=== PATIENT | male | born 1980 | race Two or more races ===

== ENCOUNTER 2021-07-22 20:40 | Emergency (ER) | payer OTHER, SELFPAY ==
[2021-07-22 21:14] VITALS: BP 152/100; PULSE 98; RESP 18; TEMP 37.1; O2SAT 96; BMI 33.0
--- NOTE | 2021-07-22 21:25 | ED.EXTPRO ---
HPI - Extremity Problem General Chief complaint: Extremity Injury, Lower Stated complaint: left foot swollen Time Seen by Provider: 07/22/21 21:34 Source: patient Mode of arrival: ambulatory Limitations: no limitations History of Present Illness HPI Narrative: Patient complaining of pain in the left foot for last 2- 3 days no injury has similar pain few months ago no treatment was done no history of gout history of kidney stone does not take any medication Related Data Previous Rx's Medication Instructions Recorded colchicine 0.6 mg capsule 0.6 mg PO DAILY #30 cap 07/22/21 dexamethasone 6 mg tablet 6 mg PO DAILY #7 tab 07/22/21 (Decadron) indomethacin 50 mg capsule 50 mg PO TID PRN #60 cap 07/22/21 Allergies Allergy/AdvReac Type Severity Reaction Status Date / Time No Known Allergies Allergy Unverified 05/06/20 18:42 Review of Systems Review of Systems: Yes all other systems are reviewed and are negative PMFSH Social History Social History Advance Directives: No Advance Directives Information Provided: Yes Physical Exam Vital Signs: Vital Signs: Last Vital Signs Temp 98.8 F 07/22/21 21:14 Pulse 98 07/22/21 21:14 Resp 18 07/22/21 21:14 BP 152/100 H 07/22/21 21:14 Pulse Ox 96 07/22/21 21:14 BMI result Body Mass Index 33.0 Appearance: Alert. Oriented X3. No acute distress. CVS: Normal heart rate and rhythm. Pulses normal. Respiratory: No respiratory distress. Equal air entry bilateral, Abdomen: Soft and nontender. , no CVA tenderness Skin: Skin warm and dry. Normal skin color. Normal skin turgor. Extremities: No lower extremity edema. No calf tenderness, tenderness at left ankle and left 1st metacarpophalangeal joint with slight swelling Neuro: Oriented X 3. Extrem: Ankle/foot/toe images: 1. Soft tissue swelling and tenderness, skin normal MDM - Extremity (Nontraumatic) MDM Narrative Medical decision making narrative: Patient with pain in the left greater toe clinically gout responded to Decadron and colchicine had similar pain in the past. Will discharge patient home on colchicine Decadron and Indocin Discharge Plan Discharge Clinical Impression: Gout Qualifiers: Gout site: foot Encounter type: initial encounter Chronicity: acute Laterality: left Patient Disposition: Home, Self-Care Instructions: Gout (ED) Additional Instructions: Rest at home take medication as prescribed Follow-up with PCP if not better Prescriptions: New dexamethasone [Decadron] 6 mg tablet 6 mg PO DAILY Qty: 7 RF: 0 colchicine 0.6 mg capsule 0.6 mg PO DAILY Qty: 30 RF: 0 indomethacin 50 mg capsule 50 mg PO TID PRN (Reason: pain (scale score 4-6)) Qty: 60 RF: 0 Interventions: ED Discharge Assessment Last Done: 07/22/21 23:30 Print Language: Georgian
--- NOTE | 2021-07-22 21:54 | PC.NURSE ---
Pharmacy contacted regarding order for Colchicine as it is not stocked in pyxis.
[2021-07-22] MEDS: dexAMETHasone 2 MG TABLET 10 MG PO (21:57)
[2021-07-22] MEDS: Colchicine 0.6 MG TABLET 1.2 MG PO (22:03)
--- NOTE | 2021-07-22 22:05 | PC.NURSE ---
Pt medicated per MAR.
== END 2021-07-22 23:34 | disposition home or self-care (01) ==
PROVIDERS: Emergency Provider Internal Medicine; PCP Internal Medicine
DX: M10.9 Gout, unspecified (principal)
CPT/HCPCS: 99283; J8540

== ENCOUNTER 2022-03-04 14:33 | Emergency (ER) | payer OTHER, SELFPAY ==
[2022-03-04 15:27] VITALS: BP 148/93; PULSE 104; RESP 16; TEMP 36.9; O2SAT 100; BMI 33.1
[2022-03-04 15:56] LABS: Strep A Nucleic Acid Negative (Negative)
[2022-03-04 18:02] LABS: COVID-19 Test Positive (Negative)
[2022-03-04 18:11] LABS: Monotest Negative (Negative)
--- NOTE | 2022-03-04 21:23 | ED.GENADULT ---
HPI - General Adult General Chief complaint: General Medical Stated complaint: sore throat Time Seen by Provider: 03/04/22 16:54 Source: patient Mode of arrival: ambulatory Limitations: no limitations History of Present Illness HPI narrative: Patient comes to the emergency room complaining of sore throat for 3 days, fever, body aches. Patient has been taking Tylenol for symptoms. Patient is not immunized for COVID-19. Patient denies chest pain or shortness of breath Related Data Previous Rx's Medication Instructions Recorded colchicine 0.6 mg capsule 0.6 mg PO DAILY #30 caps 07/22/21 dexamethasone 6 mg tablet 6 mg PO DAILY #7 tabs 07/22/21 (Decadron) indomethacin 50 mg capsule 50 mg PO TID PRN pain (scale score 07/22/21 4-6) #60 caps colchicine 0.6 mg tablet 0.6 mg PO DAILY 30 days #30 tabs 07/23/21 nirmatrelvir 300 mg (150 mg x See Rx Instructions PO .COMPLEX 03/04/22 2)-ritonavir 100 mg tablet (EUA) #30 tabs (Paxlovid 300 mg () Allergies Allergy/AdvReac Type Severity Reaction Status Date / Time No Known Allergies Allergy Unverified 03/04/22 15:27 Review of Systems Review of Systems: Constitutional : No Weight loss, complaining of fever and chills, No Night Sweats, complaining of fatigue and generalized malaise ENT/Mouth : No Hearing loss, No Ear Pain, No Nasal Congestion, No Sinus Pain, No Hoarseness, complaining of mild sore throat, No Rhinorrhea, No Swallowing Difficulty Eyes: No Eye Pain, No Swelling, No Redness, No Foreign Body, No Discharge, No Vision Changes Cardiovascular : No Chest Pain, No SOB, No Dyspnea on Exertion, No Orthopnea, No Edema, No Palpitations Respiratory : No Cough, No Sputum, No Wheezing, No Smoke Exposure, No Dyspnea Gastrointestinal : No Nausea, No Vomiting, No Diarrhea, No Constipation, No abdominal Pain, No Hematochezia, No Melena Genitourinary : no irregular bleeding, No Dysuria, No Urinary Frequency, No Hematuria, No Urinary Incontinence, No Urgency, No Flank Pain, No Urinary Flow Changes, No Hesitancy Musculoskeletal : No joint pain, No Myalgias, No Joint Swelling Skin : No Skin Lesions, No rash Neuro : No Weakness, No Numbness, No Paresthesias, No Loss of Consciousness, No Dizziness, No Headache Psych : No Anxiety/Panic, No Depression, No SI/HI/AH/VH, No Social Issues, Heme/Lymph: No Bruising, No Bleeding,No Lymphadenopathy Endocrine : No Polyuria, No Polydipsia, No Temperature Intolerance [facility] Social History Social History Advance Directives: No Advance Directives Information Provided: No Physical Exam ED Vital Signs: Vital Signs - 24 hr 03/04/22 15:27 Temperature 98.4 F Pulse Rate 104 H Respiratory Rate 16 Blood Pressure 148/93 H Pulse Oximetry 100 Oxygen Delivery Method Room Air BMI result Body Mass Index 33.1 Const Other: Appearance: Alert. Oriented X3. No acute distress. Well-appearing Eyes: Pupils equal, round and reactive to light. ENT: Pharynx normal. Bilateral exudates on tonsils, no abscesses are oropharynx patent Neck: Normal inspection. Neck supple. No lymph nodes noted. No crepitus CVS: Normal heart rate and rhythm. Pulses normal. Normal S1 and S2 Respiratory: No respiratory distress. Breath sounds normal. No Wheezing. No rales Abdomen: Soft and nontender. No rigidity. No distention. Skin: Skin warm and dry. Normal skin color. Normal skin turgor. Extremities: No lower extremity edema. No Lacerations. No Rash Neuro: Oriented X 3. No motor deficit. No sensory deficit. Moving all extremities. No slurred speech. CN 2 through 12 grossly intact Psych: calm, cooperative, normal affect Course Course Course Narrative: Patient tested negative for mono and strep. Patient tested positive for COVID-19. Patient is not immunized. Patient is within the window of treatment for Paxlovid Medical Decision Making Lab Data Labs: Lab Results 03/04/22 03/04/22 03/04/22 Range/Units 15:30 17:49 17:49 COVID-19 (CARI) Positive A (Negative) COVID-19 Clin Com See Note Monoscreen Negative (Negative) S. pyogenes GrpA TAQUERIA Negative (Negative) Discharge Plan Discharge Clinical Impression: COVID-19 Patient Disposition: Home, Self-Care Instructions: COVID-19 (Coronavirus Disease 2019) (ED) Additional Instructions: Please follow-up with your primary care physician tomorrow. If you have any worsening or new symptoms, please return to the emergency room or call 911 Prescriptions: New Paxlovid (EUA) 150 mg x 2- 100 mg tablet See Rx Instructions .ROUTE .COMPLEX Qty: 30 0RF Rx Instructions: take TWO 150 mg tablets of nirmatrelvir with ONE 100 mg tablet of ritonavir twice daily for 5 days No Action dexamethasone [Decadron] 6 mg tablet 6 mg PO DAILY Qty: 7 0RF colchicine 0.6 mg capsule 0.6 mg PO DAILY Qty: 30 0RF indomethacin 50 mg capsule 50 mg PO TID PRN (Reason: pain (scale score 4-6)) Qty: 60 0RF Rx Instructions: administer with food or milk colchicine 0.6 mg tablet 0.6 mg PO DAILY 30 Days Qty: 30 0RF
== END 2022-03-04 22:25 | disposition home or self-care (01) ==
PROVIDERS: Emergency Medicine; Emergency Provider Emergency Medicine; PCP Internal Medicine
DX: U07.1 COVID-19 (principal); J02.9 Acute pharyngitis, unspecified; Z79.899 Other long term (current) drug therapy
CPT/HCPCS: 36415; 86308; 87635; 87651; 99282; 99283

== ENCOUNTER 2022-09-17 22:42 | Emergency (ER) | payer OTHER, SELFPAY ==
--- NOTE | ~2022-09-17 | XR_ITS ---
EXAMINATION: XR FOOT, LEFT CLINICAL INFORMATION: Swelling and pain COMPARISON: None TECHNIQUE: AP, lateral, and oblique views of the left foot. FINDINGS: Osseous alignment is anatomic. No acute fracture is seen. No significant focal soft tissue abnormality identified. XR/XR foot LT min 3V IMPRESSION: No acute findings identified.
[2022-09-17 22:47] VITALS: BP 149/92; PULSE 111; RESP 20; TEMP 36.4; O2SAT 95; BMI 33.0
--- OUTSIDE RECORDS SUMMARY | 2022-09-17 23:28 | XMS_ITS | Continuity of Care Document ---
:1980 Author Organization [address], [address] [place] [address]- Care Team Providers Name Role Phone Davon REYES MD, Beau Cordero Primary Care Physician Encounter [facility] [place] Date(s): 10/26/20 - 11/02/[address], [address] [place], [place] [address] Attending Physician: Not on Staff, Attending Referring Physician: Beau Mays III, MD Allergies, Adverse Reactions, Alerts Substance Reaction Severity Status NKA Active Immunizations Given and Recorded Vaccine Date Status Refusal Reason FluLaval (oldterm)1 07/05/11 Given tetanus-diphtheria toxoids (Td)2 07/05/11 Given 1Admin Note: vis [id number] Note: VIS GIVEN 07/07/2008 Medications HYDROmorphone 2 mg oral tablet 1 tablet = 2 mg, By Mouth, Every 4 hours, PRN for pain, 0 Refills, Maintenance, 04/30/15 14:47:22, Tablet Start Date: 04/30/15 Status: OrderedLidoderm 5% film 1 patch, Topically, Daily, remove patches after 12 hours, # 10 patch, 0 Refills, Maintenance, 08/04/20 2:59:[address] [id number], Partial fill upon patient request if the prescription is for aschedule II opioid drug., 1 patch Topically Daily... Start Date: 08/04/20 Stop Date: 08/14/20 Status: Ordered Vital Signs Most recent to oldest [Reference Range]: 1 Height 179 cm (10/25/20 8:25 AM) Weight 97.9 kg (10/25/20 8:25 AM) Body Mass Index [18.5-24.99] 30.55 *>HHI* (10/25/20 8:25 AM) Social History Social History Type Response Smoking Status Never smoker entered on: 02/16/16 Sex
--- OUTSIDE RECORDS SUMMARY | 2022-09-17 23:28 | XMS_ITS | Continuity of Care Document ---
:1980 Author Organization [address], [address] [place] [address]- Care Team Providers Name Role Phone Davon REYES MD, Beau Cordero Primary Care Physician Encounter [facility] Date(s): 10/26/20 - 11/25/[address], [address] [place], [place] [address] Attending Physician: Jarrell Horton Admitting Physician: AdmJarrell hassan Referring Physician: AdmtrJarrell Allergies, Adverse Reactions, Alerts Substance Reaction Severity Status NKA Active Immunizations Given and Recorded Vaccine Date Status Refusal Reason FluLaval (oldterm)1 07/05/11 Given tetanus-diphtheria toxoids (Td)2 07/05/11 Given 1Admin Note: vis [id number] Note: VIS GIVEN 07/07/2008 Medications HYDROmorphone 2 mg oral tablet 1 tablet = 2 mg, By Mouth, Every 4 hours, PRN for pain, 0 Refills, Maintenance, 04/30/15 14:47:22, Tablet Start Date: 04/30/15 Status: OrderedLidoderm 5% film 1 patch, Topically, Daily, remove patches after 12 hours, # 10 patch, 0 Refills, Maintenance, 08/04/20 2:59:[address] [id number], Partial fill upon patient request if the prescription is for aschedule II opioid drug., 1 patch Topically Daily... Start Date: 08/04/20 Stop Date: 08/14/20 Status: Ordered Social History Social History Type Response Smoking Status Never smoker entered on: 02/16/16 Sex
--- OUTSIDE RECORDS SUMMARY | 2022-09-17 23:28 | XMS_ITS | Continuity of Care Document ---
:1980 Author Organization [address], [address] [place] [address]- Care Team Providers Name Role Phone Davon REYES MD, Beau Cordero Primary Care Physician [place] [facility] [place] [facility] [place] - 10/30/[address], [address] [place], [place] [address] Allergies, Adverse Reactions, Alerts Substance Reaction Severity Status NKA Active Immunizations Given and Recorded Vaccine Date Status Refusal Reason FluLaval (oldterm)1 07/05/11 Given tetanus-diphtheria toxoids (Td)2 07/05/11 Given 1Admin Note: vis [id number] Note: VIS GIVEN 07/07/2008 Medications HYDROmorphone 2 mg oral tablet 1 tablet = 2 mg, By Mouth, Every 4 hours, PRN for pain, 0 Refills, Maintenance, 04/30/15 14:47:22, Tablet Start Date: 04/30/15 Status: OrderedLidoderm 5% film 1 patch, Topically, Daily, remove patches after 12 hours, # 10 patch, 0 Refills, Maintenance, 08/04/20 2:59:00 [id number], Partial fill upon patient request if the prescription is for aschedule II opioid drug., 1 patch Topically Daily... Start Date: 08/04/20 Stop Date: 08/14/20 Status: Ordered Social History Social History Type Response Smoking Status Never smoker entered on: 02/16/16 Sex
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
--- OUTSIDE RECORDS SUMMARY | 2022-09-17 23:28 | XMS_ITS | Continuity of Care Document ---
:1980 Author Organization [address], [address] [place] [address]- Care Team Providers Name Role Phone Davon REYES MD, Beau Cordero Primary Care Physician Encounter [facility] [place] Date(s): 08/27/20 - 11/04/[address], [address] [place], [place] [address] Attending Physician: Bo De Guzman MD Referring Physician: Beau Mays III, MD Allergies, Adverse Reactions, Alerts Substance Reaction Severity Status NKA Active Immunizations Given and Recorded Vaccine Date Status Refusal Reason FluLaval (oldterm)1 07/05/11 Given tetanus-diphtheria toxoids (Td)2 07/05/11 Given 1Admin Note: vis [id number] Note: VIS GIVEN 07/07/2008 Medications HYDROmorphone 2 mg oral tablet 1 tablet = 2 mg, By Mouth, Every 4 hours, PRN for pain, 0 Refills, Maintenance, 04/30/15 14:47:22, Tablet Start Date: 04/30/15 Status: OrderedLidoderm 5% film 1 patch, Topically, Daily, remove patches after 12 hours, # 10 patch, 0 Refills, Maintenance, 08/04/20 2:59:00 [facility] [id number], Partial fill upon patient request if the prescription is for aschedule II opioid drug., 1 patch Topically Daily... Start Date: 08/04/20 Stop Date: 08/14/20 Status: Ordered Vital Signs Most recent to oldest [Reference Range]: 1 Height 179 cm (09/14/20 8:48 AM) Social History Social History Type Response Smoking Status Never smoker entered on: 02/16/16 Sex
--- OUTSIDE RECORDS SUMMARY | 2022-09-17 23:28 | XMS_ITS | Continuity of Care Document ---
:1980 Author Organization [address], [address] [place] [address]- Care Team Providers Name Role Phone Davon REYES MD, Beau Cordero Primary Care Physician Encounter [facility] Date(s): 08/27/20 - 09/26/[address], [address] [place], [place] [address] Allergies, Adverse Reactions, Alerts Substance Reaction Severity Status NKA Active Immunizations Given and Recorded Vaccine Date Status Refusal Reason FluLaval (oldterm)1 07/05/11 Given tetanus-diphtheria toxoids (Td)2 07/05/11 Given 1Admin Note: vis [id number] Note: VIS GIVEN 07/07/2008 Medications HYDROmorphone 2 mg oral tablet 1 tablet = 2 mg, By Mouth, Every 4 hours, PRN for pain, 0 Refills, Maintenance, 04/30/15 14:47:22, Tablet Start Date: 04/30/15 Status: OrderedLidoderm 5% film 1 patch, Topically, Daily, remove patches after 12 hours, # 10 patch, 0 Refills, Maintenance, 08/04/20 2:59:00 [id number], Partial fill upon patient request if the prescription is for aschedule II opioid drug., 1 patch Topically Daily... Start Date: 08/04/20 Stop Date: 08/14/20 Status: Ordered Social History Social History Type Response Smoking Status Never smoker entered on: 02/16/16 Sex
[2022-09-17 23:42] VITALS: BP 138/94; PULSE 105; RESP 24; TEMP 36.7; O2SAT 96
--- NOTE | 2022-09-17 23:44 | ED_ITS ---
HPI - Extremity Problem General Chief complaint: Extremity Problem Stated complaint: gout in leg? Time Seen by Provider: 09/17/22 23:44 Source: patient Mode of arrival: ambulatory Limitations: language barrier History of Present Illness HPI Narrative: 41-year-old male presents with 2 days of left foot pain and swelling. States that this feels similar to his prior presentations of gout. MD Complaint: extremity pain Onset (ago): day(s) (2) Pain Consistency: constant Location: left and lower extremity Severity scale (1-10): 7 Quality: aching Radiation: none Relieving factors: elevation and rest Exacerbating factors: weight bearing, walking and palpation Associated symptoms: denies other symptoms Related Data Previous Rx's Medication Instructions Recorded colchicine 0.6 mg capsule 0.6 mg PO DAILY #30 caps 07/22/21 dexamethasone 6 mg tablet 6 mg PO DAILY #7 tabs 07/22/21 (Decadron) indomethacin 50 mg capsule 50 mg PO TID PRN pain (scale score 07/22/21 4-6) #60 caps colchicine 0.6 mg tablet 0.6 mg PO DAILY 30 days #30 tabs 07/23/21 nirmatrelvir 300 mg (150 mg See Rx Instructions PO .COMPLEX 03/04/22 x2)-ritonavir 100 mg tablet,dose #30 tabs pack(EUA) (Paxlovid) colchicine 0.6 mg tablet 0.6 mg PO DAILY #30 tabs 09/18/22 indomethacin 50 mg capsule 50 mg PO TID PRN gout pain #90 09/18/22 caps prednisone 20 mg tablet 60 mg PO DAILY 5 days #15 tabs 09/18/22 Allergies Allergy/AdvReac Type Severity Reaction Status Date / Time No Known Allergies Allergy Unverified 03/04/22 15:27 Review of Systems Review of Systems: Constitutional: No Fever, No Chills Cardiovascular: No Chest Pain, No SOB Respiratory: No Cough, No Dyspnea Musculoskeletal: positive left foot pain Skin: No Skin lacerations, No rash Neuro: No Weakness, No Numbness, No Paresthesias Yes all other systems are reviewed and are negative [facility] Past Medical History Attestation statement: The following information was validated with the patient. Source: old records reviewed Social History Social History Alcohol intake: never Smoked in Last 30 Days: No Use of substances other than those prescribed or required for medical reasons: No Advance Directives: No Physical Exam Vital Signs: Vital Signs: Last Vital Signs Temp 98.2 F 09/18/22 00:00 Pulse 102 H 09/18/22 00:00 Resp 14 09/18/22 00:00 BP 138/94 H 09/18/22 00:00 Pulse Ox 97 09/18/22 00:00 O2 Del Method 09/18/22 00:00 BMI result Body Mass Index 33.0 Appearance: Alert. Oriented X3. No acute distress. Eyes: Pupils equal, round and reactive to light. ENT: Pharynx normal. Neck: Normal inspection. Neck supple. CVS: Normal heart rate and rhythm. Pulses normal. Respiratory: No respiratory distress. Breath sounds normal. Skin: Skin warm and dry. Normal skin color. Normal skin turgor. Extremities: Left foot swelling, tenderness to palpation. Full range of motion. Brisk capillary refill in equal pulses. Neurovascularly intact. Ambulatory with a limp. Neuro: No motor deficit. No sensory deficit. Cranial nerves 2-12 intact. Course Course Course Narrative: 41-year-old male presents with left foot pain and swelling which is consistent with his prior presentations for gout. He does not have any more medications for gout does not report any injury, fevers, chills, nausea vomiting or palpitations. Patient is ambulatory however states tender to touch, is difficult for him to wear shoes because of the pain. Will order labs and x- rays. 00:56 labs negative for acute findings. X-rays negative for osteomyelitis, f racture. Low likelihood of dislocation. Patient states that Toradol and prednisone were effective to help with his pain. Plan of care is to discharge home with prescription for colchicine and indomethacin as they have worked well for him in the past. Patient verbalized understanding of and agrees plan of care discharge home. Replies understanding of signs and symptoms indicating need for emergent intervention. Patient's utilized as japanese interpreter per patient request. Google translate utilized for discharge instructions. Medications Administered Discontinued Medications Generic Name Dose Route Start Last Admin Trade Name Freq PRN Reason Stop Dose Admin Ketorolac Tromethamine 60 mg 09/17/22 23:50 09/18/22 00:02 Ketorolac Tromethamine 60 Mg/2 Ml Vial IM 09/17/22 23:51 60 mg ONCE ONE Administration Prednisone 60 mg 09/17/22 23:50 09/18/22 00:02 Prednisone 20 Mg Tablet PO 09/17/22 23:51 60 mg ONCE ONE Administration Medical Decision Making Differential Diagnosis Differential Diagnoses: The differential diagnosis associated with the presentation includes Gout, cellulitis, fracture, osteomyelitis Lab Data MDM Lab Attestation statement: I reviewed the patient's lab results. 09/18/22 00:16 09/18/22 00:16 Labs: Lab Results 09/18/22 09/18/22 Range/Units 00:16 00:16 WBC 10.4 (4.8-10.8) X10*3/uL RBC 5.04 (4.60-5.80) X10*6/uL Hgb 14.8 (14.0-18.0) g/dl Hct 43.8 (42.0-52.0) % MCV 86.9 (80.0-98.0) fL MCH 29.4 (27.0-33.0) pg MCHC 33.8 (31.0-36.0) g/dl RDW 13.2 (11.0-16.0) % Plt Count 174 (160-400) X10*3/uL MPV 12.7 H (9.4-12.4) fL Immature Gran % (Auto) 0.3 (0.0-0.4) % Neut % (Auto) 68.6 (45-73) % Lymph % (Auto) 22.0 (20-40) % Rhea % (Auto) 7.3 (2-11) % Eos % (Auto) 1.3 (0-4) % Baso % (Auto) 0.5 (0-2) % Lymph # (Auto) 2.3 (1.2-4.9) X10*3/uL Rhea # (Auto) 0.8 (0.1-1.2) X10*3/uL Eos # (Auto) 0.1 (0.0-0.4) X10*3/uL Baso # (Auto) 0.1 (0.0-0.2) X10*3/uL Abs Immat Gran (auto) 0.03 (0.00-0.03) X10*3/uL Absolute Neuts (auto) 7.1 (2.0-8.3) x10*3/uL Absolute Nucleated RBC 0.000 (0.0-0.012) X10*3/uL Nucleated RBC % (auto) 0.0 (0.0-0.2) /100WBC Sodium 138 (135-145) mmol/L Potassium 4.0 (3.3-5.1) mmol/L Chloride 104 (96-108) mmol/L Carbon Dioxide 25 (22-29) mmol/L Anion Gap 13 (12-20) BUN 15 (9-16) mg/dL Creatinine 1.17 (0.5-1.4) mg/dL Estim Creat Clear Calc 99.5 Estimated GFR > 60 Random Glucose 290 H (60-115) mg/dL Calcium 9.5 (8.4-10.2) mg/dL Independent Interpretation I performed an independent interpretation of an: Plain X-Ray Radiology Impression Discussion of test interpretation with radiology: I have reviewed the radiologist's reading. Radiologist Impression: EXAMINATION: XR FOOT, LEFT CLINICAL INFORMATION: Swelling and pain? COMPARISON: None? TECHNIQUE: AP, lateral, and oblique views of the left foot. FINDINGS: Osseous alignment is anatomic. No acute fracture is seen. No significant focal soft tissue abnormality identified.? XR/XR foot LT min 3V IMPRESSION: No acute findings identified. ? Independent Historian Clinical information obtained from an independent historian. History obtained from or confirmed by: Spouse External Record Review External record reviewed: Outpatient record and Prior outpatient labs Prescription Management I considered prescription management with: Pain Medication Chronic Conditions Patient?s care impacted by: Hypertension Discharge Plan Discharge Clinical Impression: Gout Patient Disposition: Home, Self-Care Instructions: Low Purine Diet (ED), Gout (ED), Swollen Ankle Joint (ED) Additional Instructions: Le evaluaron por dolor e hinchaz?n en el pie anuj. Wong evaluaci?n es consistente con gota. [place] colchicina 0,6 mg al d?a. [place] indometacina 50 mg cada 8 horas seg?n sea necesario para el dolor. [place] prednisona 60 mg grisel los pr?ximos 5 d?as. Seguimiento con m?dico de atenci?n primaria. Doni por elegir tiffany departamento de emergencias para wong evaluaci?n. Por favor, shauna un seguimiento con el m?dico de atenci?n primaria seg?n sea necesario. Regrese al departamento de emergencias por cualquier s?ntoma nuevo, preocupante o que empeore. You were evaluated for left foot pain and swelling. Your workup is consistent with gout. Please take colchicine 0.6 mg daily. Take indomethacin 50 mg every 8 hours as needed for pain. Take prednisone 60 mg for the next 5 days. Follow-up with primary care physician. Thank you for choosing this emergency department for evaluation. Please follow-up with primary care physician as needed. Return to the emergency department for any new, concerning, or worsening symptoms. Prescriptions: New colchicine 0.6 mg tablet 0.6 mg PO DAILY Qty: 30 3RF prednisone 20 mg tablet 60 mg PO DAILY 5 Days Qty: 15 0RF indomethacin 50 mg capsule 50 mg PO TID PRN (Reason: gout pain ) Qty: 90 0RF Rx Instructions: administer with food or milk No Action dexamethasone [Decadron] 6 mg tablet 6 mg PO DAILY Qty: 7 0RF colchicine 0.6 mg capsule 0.6 mg PO DAILY Qty: 30 0RF indomethacin 50 mg capsule 50 mg PO TID PRN (Reason: pain (scale score 4-6)) Qty: 60 0RF Rx Instructions: administer with food or milk colchicine 0.6 mg tablet 0.6 mg PO DAILY 30 Days Qty: 30 0RF Paxlovid (EUA) 150 mg x 2- 100 mg tablet See Rx Instructions .ROUTE .COMPLEX Qty: 30 0RF Rx Instructions: take TWO 150 mg tablets of nirmatrelvir with ONE 100 mg tablet of ritonavir twice daily for 5 days Referrals: Beau Mays III, MD [Primary Care Provider] - 2 weeks (Gout flare up)
[2022-09-18] VITALS: BP 138/94; PULSE 102; RESP 14; TEMP 36.8; O2SAT 97
[2022-09-18] MEDS: predniSONE 20 MG TABLET 60 MG PO (00:02)
[2022-09-18] MEDS: Ketorolac Tromethamine 60 MG/2 ML VIAL IM (00:02)
[2022-09-18 00:22] LABS: MANUAL DIFF FLAG NO
[2022-09-18 00:33] LABS: Basophils Absolute Auto 0.1 X10*3/uL (0.0-0.2); Basophils Percent Auto 0.5 % (0-2); Eosinophils Absolute Auto 0.1 X10*3/uL (0.0-0.4); Eosinophils Percent Auto 1.3 % (0-4); Hematocrit 43.8 % (42.0-52.0); Hemoglobin 14.8 g/dl (14.0-18.0); Imm Gran Abs Auto 0.03 X10*3/uL (0.00-0.03); Imm Gran Pct Auto 0.3 % (0.0-0.4); Lymphocytes Absolute Auto 2.3 X10*3/uL (1.2-4.9); Mean Corpuscular HGB Conc 33.8 g/dl (31.0-36.0); Mean Corpuscular Hemoglobin 29.4 pg (27.0-33.0); Mean Corpuscular Volume 86.9 fL (80.0-98.0); Mean Platelet Volume 12.7 fL (9.4-12.4); Monocytes Absolute Auto 0.8 X10*3/uL (0.1-1.2); Monocytes Percent Auto 7.3 % (2-11); Neutrophils Absolute Auto 7.1 x10*3/uL (2.0-8.3); Neutrophils Percent Auto 68.6 % (45-73); Platelet Count 174 X10*3/uL (160-400); Red Blood Count 5.04 X10*6/uL (4.60-5.80); Red Cell Distribution Width 13.2 % (11.0-16.0); White Blood Count 10.4 X10*3/uL (4.8-10.8)
[2022-09-18 00:38] LABS: Anion Gap 13 (12-20); Blood Urea Nitrogen 15 mg/dL (9-16); Calcium 9.5 mg/dL (8.4-10.2); Carbon Dioxide 25 mmol/L (22-29); Chloride 104 mmol/L (96-108); Creatinine Clr Calc Pharmacy 99.5; Estimated Glomerular Filt Rate > 60; Glucose Random 290 mg/dL (60-115); Sodium 138 mmol/L (135-145)
--- NOTE | 2022-09-18 01:11 | PC.NURSE ---
Reviewed discharge instructions with pt. pt verbalized understanding. Notified TIA Roe.
== END 2022-09-18 01:12 | disposition home or self-care (01) ==
PROVIDERS: Nurse Practitioner Family; Emergency Provider Emergency Medicine; PCP Internal Medicine
DX: M10.9 Gout, unspecified (principal); R60.0 Localized edema; M79.672 Pain in left foot; Z79.899 Other long term (current) drug therapy
CPT/HCPCS: 36415; 73630; 80048; 85025; 96372; 99284; J1885

== ENCOUNTER 2022-12-11 18:29 | Emergency (ER) | payer OTHER, SELFPAY ==
--- NOTE | ~2022-12-11 | XR_ITS ---
EXAMINATION: XR CHEST CLINICAL INFORMATION: Cough COMPARISON: 08/26/2015 TECHNIQUE: AP view of the chest was obtained. FINDINGS: Mild chronic elevation of the right hemidiaphragm. No consolidation, pneumothorax, or pleural effusion. Cardiac and mediastinal contours are normal. Pulmonary vasculature is normal. Bone mineralization is normal. No acute osseous findings. XR/XR chest 2V IMPRESSION: No acute pulmonary disease.
--- NOTE | ~2022-12-11 | XR_ITS ---
EXAMINATION: XR FOOT, LEFT CLINICAL INFORMATION: great toe pain, swelling COMPARISON: 09/18/2022 TECHNIQUE: AP, lateral, and oblique views of the left foot. FINDINGS: Mild soft tissue swelling at the left foot, most pronounced at the medial midfoot and hindfoot. No fracture or malalignment. Bone mineralization is normal. Joint spaces are well-preserved. Small enthesopathic spurs at the calcaneus. XR/XR foot LT min 3V IMPRESSION: Soft tissue swelling. No acute osseous findings.
[2022-12-11 19:24] VITALS: BP 156/95; PULSE 115; RESP 20; TEMP 36.9; O2SAT 95; BMI 25.8
--- NOTE | 2022-12-11 19:26 | ED_ITS ---
HPI - General Adult General Chief complaint: Extremity Problem <SUMAN Villarreal - Last Filed: 12/11/22 19:31> Stated complaint: ?left foot pain,cough <SUMAN Villarreal - Last Filed: 12/11/22 19:31> Time Seen by Provider: 12/11/22 21:09 <SUMAN Villarreal - Last Filed: 12/11/22 19:31> Source: patient <SUMAN Chavis - Last Filed: 12/11/22 21:46> Mode of arrival: ambulatory <SUMAN Chavis - Last Filed: 12/11/22 21:46> Limitations: no limitations <SUMAN Chavis Last Filed: 12/11/22 21:46> History of Present Illness HPI narrative: This is a 42-year-old male presenting with complaints of left-sided great toe pain with radiation to left foot that started yesterday and has been progressively worsening. Patient tells me this feels like his typical gout episode, significant pain, worse with movement better at rest. He tells me that his left great toe appears swollen, painful and slightly warm to the touch. Tells me if anything touches it is extremely uncomfortable. Patient also mentions that he has had a chronic cough for the past 2 months, not improving, not productive, intermittent and worse at night. Patient denies chest pain, shortness of breath, nausea, vomiting, abdominal pain, headache, vision changes, dizziness, weakness, calf pain, long travel, history of DVT or PE, nonsmoker. <SUMAN Chavis Last Filed: 12/11/22 21:46> Related Data Home medications: Previous Rx's Medication Instructions Recorded colchicine 0.6 mg capsule 0.6 mg PO DAILY #30 caps 07/22/21 dexamethasone 6 mg tablet 6 mg PO DAILY #7 tabs 07/22/21 (Decadron) indomethacin 50 mg capsule 50 mg PO TID PRN pain (scale score 07/22/21 4-6) #60 caps colchicine 0.6 mg tablet 0.6 mg PO DAILY 30 days #30 tabs 07/23/21 nirmatrelvir 300 mg (150 mg See Rx Instructions PO .COMPLEX 07/16/22 x2)-ritonavir 100 mg tablet,dose #30 tabs pack(EUA) (Paxlovid) colchicine 0.6 mg tablet 0.6 mg PO DAILY #30 tabs 09/18/22 indomethacin 50 mg capsule 50 mg PO TID PRN gout pain #90 09/18/22 caps prednisone 20 mg tablet 60 mg PO DAILY 5 days #15 tabs 09/18/22 albuterol sulfate 90 mcg/actuation 2 inh inhalation Q4-6H PRN 12/11/22 breath activated powder inhaler shortness of breath or wheezing #1 ea benzonatate 100 mg capsule 100 mg PO BID PRN cough #20 caps 12/11/22 ketorolac 10 mg tablet 10 mg PO TID PRN pain 5 days #15 12/11/22 tabs prednisone 20 mg tablet 60 mg PO DAILY 5 days #15 tabs 12/11/22 <SUMAN Villarreal - Last Filed: 12/11/22 19:31> Allergies/adverse reactions: Allergies Allergy/AdvReac Type Severity Reaction Status Date / Time No Known Allergies Allergy Unverified 03/04/22 15:27 <SUMAN Villarreal - Last Filed: 12/11/22 19:31> Review of Systems Review of Systems: Constitutional : No Weight loss, No Fever, No Chills, No Fatigue, No Malaise ENT/Mouth : No sore throat, No Rhinorrhea Eyes: No Eye Pain, No Swelling, No Redness Cardiovascular : No Chest Pain, No SOB, No Dyspnea on Exertion, No Orthopnea, No Edema, No Palpitations Respiratory : No Cough, No Sputum, No Wheezing Gastrointestinal : No Nausea, No Vomiting, No Diarrhea, No Constipation, No abdominal Pain, No Hematochezia, No Melena Genitourinary : No Dysuria, No Urinary Frequency, No Hematuria, Musculoskeletal : + joint pain, No Myalgias, + Joint Swelling Skin : No Skin Lesions, No rash Neuro : No Weakness, No Numbness, No Dizziness, No Headache Psych : No Anxiety/Panic, No Depression All other systems reviewed and are negative <SUMAN Chavis Last Filed: 12/11/22 21:46> Yes all other systems are reviewed and are negative <SUMAN Chavis Last Filed: 12/11/22 21:46> PMFSH Past Medical History Attestation statement: The following information was validated with the patient. <SUMAN Chavis - Last Filed: 12/11/22 21:46> Source: old records reviewed and nursing notes reviewed <SUMAN Chavis - Last Filed: 12/11/22 21:46> Social History Social History: Social History Alcohol intake: never Advance Directives: No Advance Directives Information Provided: Yes <SUMAN Villarreal - Last Filed: 12/11/22 19:31> Physical Exam ED Vital Signs: Vital Signs - 24 hr 12/11/22 19:24 Temperature 98.5 F Pulse Rate 115 H Respiratory Rate 20 Blood Pressure 156/95 H Pulse Oximetry 95 Oxygen Delivery Method Room Air BMI result Body Mass Index 25.8 <SUMAN Villarreal - Last Filed: 12/11/22 19:31> Vital Signs - 24 hr 12/11/22 19:24 Temperature 98.5 F Pulse Rate 115 H Respiratory Rate 20 Blood Pressure 156/95 H Pulse Oximetry 95 Oxygen Delivery Method Room Air BMI result Body Mass Index 25.8 vss <SUMAN Chavis - Last Filed: 12/11/22 21:46> Appearance: Alert.? Oriented X3.? No acute distress.? Head: Normocephalic, atraumatic, no step-offs or deformities Eyes: Pupils equal, round and reactive to light.? ENT: Pharynx normal.? Neck: Normal inspection.? Neck supple.? CVS: Normal heart rate and rhythm.? Pulses normal.? Respiratory: No respiratory distress.? Breath sounds normal.? Abdomen: Soft and nontender.? Skin: Skin warm and dry.? Normal skin color.? Normal skin turgor.? Extremities: No lower extremity edema.? No calf ttp, negative erica b/l. 5/5 strength to bilateral upper and lower extremities + Left great toe with swelling, warmth and mild medial erythema Exquisitely tender. Also swelling to dorsal aspect of foot. 2+ DP.AT,PT pulses equal and b/l. Normal ROM rom to all toes, pain free. Neuro: Oriented X 3.? No motor deficit.? No sensory deficit. CN 2-12 intact <SUMAN Chavis - Last Filed: 12/11/22 21:46> Course Course Course Narrative: RME: 42yo M w/PMHx gout, c/o L great toe pain and swelling since waking this AM with difficulty ambulating from pain. Denies injury/trauma or fall. Admits symptoms similar to prior gout. Also reports dry cough x months Patient in wheelchair. Left great toe with swelling and mild medial erythema. Exquisitely tender. NV intact Foot x-ray, CXR, COVID/flu ordered Full HPI, ROS and PE to be performed by primary ED provider. <SUMAN Villarreal Last Filed: 12/11/22 19:31> Reevaluation(s) Reevaluation #1: Unremarkable chest x-ray. X-ray of foot with soft tissue swelling. Viral test negative. Patient received Toradol for pain will be discharged home with same also discharge him home with prednisone he tells me prednisone causes him GI upset however I explained to him he should take this with food, to help decrease these effects. I also told him that prednisone would help with his chronic cough. Advised to follow-up with PCP and return with new or worsening symptoms. Educated patient on diagnosis and treatment plan, answered all question, patient verbalizes understanding. At this time patient will be discharged home, advised to return with new or worsening symptoms. Educated on worrisome signs and symptoms and when to return. At this time I feel comfortable discharge home. <SUMAN Chavis - Last Filed: 12/11/22 21:46> Time: 21:44 <SUMAN Chavis - Last Filed: 12/11/22 21:46> Medications Administered Discontinued Medications Generic Name Dose Route Start Last Admin Trade Name Freq PRN Reason Stop Dose Admin Ketorolac Tromethamine 30 mg 12/11/22 21:26 12/11/22 21:32 Ketorolac Tromethamine 15 Mg/Ml Vial IM 12/11/22 21:27 30 mg ONCE ONE Administration <SUMAN Villarreal - Last Filed: 12/11/22 19:31> Medications Administered Discontinued Medications Generic Name Dose Route Start Last Admin Trade Name Freq PRN Reason Stop Dose Admin Ketorolac Tromethamine 30 mg 12/11/22 21:26 12/11/22 21:32 Ketorolac Tromethamine 15 Mg/Ml Vial IM 12/11/22 21:27 30 mg ONCE ONE Administration <SUMAN Chavis Last Filed: 12/11/22 21:46> Medical Decision Making Medical Decision Making [facility] Narrative: [id number] 42 year old male presents w/ L great to pain and swelling X 2 days and chornic cough X 2 months. PE w/ No lower extremity edema.? No calf ttp, negative erica b/l. 5/5 strength to bilateral upper and lower extremities + Left great toe with swelling, warmth and mild medial erythema Exquisitely tender. Also swelling to dorsal aspect of foot. 2+ DP.AT,PT pulses equal and b/l. Normal ROM rom to all toes, pain free. This is likely gout of the left great toe. Other differentials include cellulitis or pseudogout. Unlikely that this is DVT, arterial occlusion, septic joint, threatened limb. Cough likely secondary to bronchitis, asthma or allergies. Unlikely PE, pneumonia. Patient is not on KELLI-inhibitor unlikely KELLI-inhibitor induced cough. Patient is tachycardic however likely secondary to pain and discomfort I do not suspect PE and patient without risk factors. Plan at this time imaging which was ordered from triage. And viral test <SUMAN Chavis Last Filed: 12/11/22 21:46> Differential Diagnosis Differential Diagnoses: The differential diagnosis associated with the presentation includes <SUMAN Chavis Last Filed: 12/11/22 21:46> This is likely gout of the left great toe. Other differentials include cellulitis or pseudogout. Unlikely that this is DVT, arterial occlusion, septic joint, threatened limb. Cough likely secondary to bronchitis, asthma or allergies. Unlikely PE, pneumonia. Patient is not on KELLI-inhibitor unlikely KELLI-inhibitor induced cough. Patient is tachycardic however likely secondary to pain and discomfort I do not suspect PE and patient without risk factors. <SUMAN Chavis Last Filed: 12/11/22 21:46> Admission/Observation Consideration of admission/observation: Escalation of care including admission/observation considered <SUMAN Chavis Last Filed: 12/11/22 21:46> Unlikely <SUMAN Chavis - Last Filed: 12/11/22 21:46> Lab Data MDM Lab Attestation statement: I reviewed the patient's lab results. <SUMAN Chavis - Last Filed: 12/11/22 21:46> Labs: Lab Results 12/11/22 12/11/22 Range/Units 20:53 20:53 COVID-19 (CARI) Negative (Negative) COVID-19 Clin Com See Note Influenza Type A (TAQUERIA) Negative (Negative) Influenza Type B (TAQUERIA) Negative (Negative) Influenza A & B Note See Note <SUMAN Villarreal - Last Filed: 12/11/22 19:31> Lab Results 12/11/22 12/11/22 Range/Units 20:53 20:53 COVID-19 (CARI) Negative (Negative) COVID-19 Clin Com See Note Influenza Type A ([place]QU[place]IA) Negative (Negative) Influenza Type B (TAQU[place]IA) Negative (Negative) Influenza A & B Note See Note <SUMAN Chavis - Last Filed: 12/11/22 21:46> Independent Interpretation I performed an independent interpretation of an: Plain X-Ray ( XR/XR foot LT min 3V IMPRESSION: Soft tissue swelling. No acute osseous findings. XR/XR chest 2V IMPRESSION: No acute pulmonary disease.) <SUMAN Chavis - Last Filed: 12/11/22 21:46> Core Measures AMI core measures followed: Yes <SUMAN Chavis - Last Filed: 12/11/22 21:46> Measure exclusions: not indicated <SUMAN Chavis - Last Filed: 12/11/22 21:46> Critical Care Time Critical Care Time Critical Care Time: No <SUMAN Chavis - Last Filed: 12/11/22 21:46> Discharge Plan Discharge Clinical Impression: Gout, Chronic cough <SUMAN Villarreal - Last Filed: 12/11/22 19:31> Patient Disposition: Home, Self-Care <SUMAN Villarreal - Last Filed: 12/11/22 19:31> Instructions: Gout (ED), Chronic Cough (ED) <SUMAN Villarreal - Last Filed: 12/11/22 19:31> Additional Instructions: Take your medications as prescribed. If you were prescribed antibiotics today, it is important that you take your medication to their entirety, do not skip any doses, do not finish them early. Follow-up with your primary care provider this week. Return to the emergency department with new or worsening symptoms. Such as fevers, chills, chest pain, shortness of breath, nausea, vomiting, dizziness, headache, vision changes, lethargy In case of emergency call 911 Do not take indomethacin with Toradol. Take Toradol instead. Toradol has been sent to your pharmacy, you tolerated this well in the department. Please take this as prescribed do not take this with ibuprofen, indomethacin or other NSAIDs, do not mix this with alcohol. Side effects of this medication including increased risk for bleeding and possible kidney injury. [place] bob medicamentos seg?n lo prescrito. Si le recetaron antibi?ticos hoy, es importante que tome wong medicamento en wong totalidad, no se salte ninguna dosis, no los termine antes de tiempo. Seguimiento con wong proveedor de atenci?n primaria esta semana. Regrese al departamento de emergencias con s?ntomas nuevos o que empeoran. Pérez fiebre, escalofr?os, dolor de pecho, dificultad para respirar, n?useas, v?mitos, mareos, dolor de hanna, cambios en la visi?n, letargo En allan de emergencia llama al 911 No tome indometacina con Toradol. [place] Toradol en wong lugar. Toradol rodrigues sido enviado a wong farmacia, lo shellie? natalie en el departamento. T?watters seg?n lo recetado, no lo tome con ibuprofeno, indometacina u otros EUSEBIO, no lo mezcle con alcohol. Los efectos secundarios de tiffany medicamento incluyen un mayor riesgo de sangrado y posible lesi?n renal. XR/XR chest 2V IMPRESSION: No acute pulmonary disease. ?XR/XR foot LT min 3V IMPRESSION: Soft tissue swelling. No acute osseous findings. ? ? <SUMAN Villarreal - Last Filed: 12/11/22 19:31> Prescriptions: New albuterol sulfate 90 mcg/actuation aerosol powdr breath activated 2 inh inhalation Q4-6H PRN (Reason: shortness of breath or wheezing) Qty: 1 0RF benzonatate 100 mg capsule 100 mg PO BID PRN (Reason: cough) Qty: 20 0RF prednisone 20 mg tablet 60 mg PO DAILY 5 Days Qty: 15 0RF ketorolac 10 mg tablet 10 mg PO TID PRN (Reason: pain) 5 Days Qty: 15 0RF No Action colchicine 0.6 mg tablet 0.6 mg PO DAILY Qty: 30 3RF prednisone 20 mg tablet 60 mg PO DAILY 5 Days Qty: 15 0RF indomethacin 50 mg capsule 50 mg PO TID PRN (Reason: gout pain ) Qty: 90 0RF Rx Instructions: administer with food or milk dexamethasone [Decadron] 6 mg tablet 6 mg PO DAILY Qty: 7 0RF colchicine 0.6 mg capsule 0.6 mg PO DAILY Qty: 30 0RF indomethacin 50 mg capsule 50 mg PO TID PRN (Reason: pain (scale score 4-6)) Qty: 60 0RF Rx Instructions: administer with food or milk colchicine 0.6 mg tablet 0.6 mg PO DAILY 30 Days Qty: 30 0RF Paxlovid (EUA) 150 mg x 2- 100 mg tablet See Rx Instructions .ROUTE .COMPLEX Qty: 30 0RF Rx Instructions: take TWO 150 mg tablets of nirmatrelvir with ONE 100 mg tablet of ritonavir twice daily for 5 days <SUMAN Villarreal - Last Filed: 12/11/22 19:31> Referrals: Beau Mays III, MD [Primary Care Provider] - 2 days <SUMAN Villarreal - Last Filed: 12/11/22 19:31> Stand Alone Forms: Work/School Release <SUMAN Villarreal - Last Filed: 12/11/22 19:31>
[2022-12-11 21:13] LABS: COVID-19 Test Negative (Negative); IDNOW Serial# 08D9AD1C; IDNOW Serial# BCCEAD1C; Influenza A Negative (Negative); Influenza B2 Negative (Negative)
[2022-12-11] MEDS: Ketorolac Tromethamine 15 MG/ML VIAL 30 MG IM (21:32)
== END 2022-12-11 21:53 | disposition home or self-care (01) ==
PROVIDERS: Physician Assistant; Emergency Provider Emergency Medicine Emergency Medical Services; PCP Internal Medicine
DX: M10.9 Gout, unspecified (principal); R05.3 Chronic cough; Z20.822 Contact with and (suspected) exposure to COVID-19; M79.672 Pain in left foot
CPT/HCPCS: 71046; 73630; 87502; 87635; 96372; 99283; 99284; J1885

== ENCOUNTER 2023-03-22 05:50 | Emergency (ER) | payer OTHER, SELFPAY ==
--- NOTE | ~2023-03-22 | CT_ITS ---
CT SOFT TISSUE NECK WITH IV CONTRAST CLINICAL INFORMATION: Concern for peritonsillar abscess. COMPARISON: None available. TECHNIQUE: Following the intravenous administration of 100 mL of Omnipaque 350 intravenous contrast, helical imaging was performed in the axial plane with generation of coronal and sagittal reformatted images. This CT examination was performed using dose optimization techniques as appropriate, variously including the following: *Automated exposure control *Adjustment of mA and/or kV according to patient size (this includes techniques or standardized protocols for targeted exams where dose is matched to indication/reason for exam; i.e. extremities or head) *Use of iterative reconstruction technique FINDINGS: [place] tonsillitis. No discrete peripherally enhancing fluid collection to suggest a peritonsillar abscess. No extra tonsillar cellulitis. There is a 1.2 cm cyst deep to the anterior aspect of the right thyroid strap musculature on image 75 of series 2, most compatible with a thyroglossal duct cyst. There is no cervical lymphadenopathy. Small lipoma within the left thyroid gland. The submandibular and the parotid glands are unremarkable. Orbital soft tissues are unremarkable. There are no retropharyngeal fluid collections. There is multilevel cervical spondylosis. There is moderate polypoid mucosal thickening within the inferior right maxillary sinus and there is mild polypoid mucosal thickening within the inferior left maxillary sinus. Moderate mucosal thickening within the left sphenoid sinus and mild mucosal thickening within the right sphenoid sinus. The mastoid air cells are clear. Imaged upper lungs are clear. Imaged upper mediastinum is unremarkable. The partially imaged intracranial compartment is unremarkable. CT/CT soft tissue neck w IV con IMPRESSION: - [place] tonsillitis. No discrete peripherally enhancing fluid collection to suggest a peritonsillar abscess. No extra tonsillar cellulitis. - There is a 1.2 cm cyst deep to the anterior aspect of the right thyroid strap musculature on image 75 of series 2, most compatible with a thyroglossal duct cyst.
[2023-03-22 06:06] VITALS: BP 153/90; PULSE 96; RESP 14; TEMP 37; O2SAT 95; BMI 33.0
--- NOTE | 2023-03-22 06:38 | ED.GENADULT ---
HPI - General Adult General Chief complaint: General Medical Stated complaint: throat pain Time Seen by Provider: 03/22/23 06:30 Source: patient Mode of arrival: ambulatory Limitations: no limitations History of Present Illness HPI narrative: Patient is a 42 year old assigned male at with no reported medical history presenting to the emergency department today with a sore throat and difficulty swallowing. Patient states that over the last 11 days he has had worsening sore throat and difficulty swallowing. Patient denies any dizziness, lightheadedness, abdominal pain, nausea, vomiting, fever, chills, blurry vision, double vision, loss of vision, chest pain, difficulty breathing, shortness of breath, back pain, night sweats, pain with urination, increased urinary frequency, increased urinary urgency, blood in his urine or stool, syncope or a near syncopal episode, recent trauma or falls, bowel incontinence, bladder incontinence, bowel retention, bladder retention, or any other complaints at this time. Onset (ago): day(s) (11) Severity: moderate Severity scale (1-10): 5 Relieving factors: none Exacerbating factors: none Associated symptoms: denies other symptoms Treatments prior to arrival: none Related Data Previous Rx's Medication Instructions Recorded colchicine (gout) 0.6 mg capsule 0.6 mg PO DAILY #30 caps 07/22/21 dexamethasone 6 mg tablet 6 mg PO DAILY #7 tabs 07/22/21 (Decadron) indomethacin 50 mg capsule 50 mg PO TID PRN pain (scale score 07/22/21 4-6) #60 caps colchicine (gout) 0.6 mg tablet 0.6 mg PO DAILY 30 days #30 tabs 07/23/21 nirmatrelvir 300 mg (150 mg See Rx Instructions PO .COMPLEX 03/04/22 x2)-ritonavir 100 mg tablet,dose #30 tabs pack (Paxlovid) colchicine (gout) 0.6 mg tablet 0.6 mg PO DAILY #30 tabs 09/18/22 indomethacin 50 mg capsule 50 mg PO TID PRN gout pain #90 09/18/22 caps prednisone 20 mg tablet 60 mg PO DAILY 5 days #15 tabs 09/18/22 albuterol sulfate 90 mcg/actuation 2 inh inhalation Q4-6H PRN 12/11/22 breath activated powder inhaler shortness of breath or wheezing #1 ea benzonatate 100 mg capsule 100 mg PO BID PRN cough #20 caps 12/11/22 ketorolac 10 mg tablet 10 mg PO TID PRN pain 5 days #15 12/11/22 tabs prednisone 20 mg tablet 60 mg PO DAILY 5 days #15 tabs 12/11/22 penicillin V potassium 500 mg 500 mg PO BID 10 days #20 tabs 03/22/23 tablet prednisone 20 mg tablet 20 mg PO DAILY 7 days #7 tabs 03/22/23 Allergies Allergy/AdvReac Type Severity Reaction Status Date / Time No Known Allergies Allergy Verified 03/22/23 06:16 Review of Systems Constitutional: Constitutional: Reports no additional constitutional complaints, Denies chills, Denies fever(s) and Denies night sweats Eyes: Eyes: Reports no additional eye complaints, Denies blurry vision, Denies change in vision, Denies diplopia, Denies eye discharge, Denies loss of vision and Denies eye pain ENT: Denies dizziness and Reports sore throat Comments: difficulty swallowing Cardiovascular: Cardiovascular: Reports no additional cardiovascular complaints, Denies chest pain, Denies lightheadedness, Denies Loss of Consciousness and Denies dyspnea Respiratory: Respiratory: Reports no additional respiratory complaints and Denies dyspnea Gastrointestinal: Gastrointestinal: Reports no additional gastrointestinal complaints, Denies abdominal pain, Denies melena, Denies hematochezia, Denies change in bowel habits and Denies change in stool character Genitourinary: Genitourinary: Reports no additional male genitourinary complaints, Denies hematuria, Denies oliguria, Denies difficulty urinating, Denies dysuria, Denies urinary frequency, Denies urinary hesitancy, Denies urinary incontinence and Denies urinary urgency Musculoskeletal: Musculoskeletal: Reports no additional musculoskeletal complaints, Denies numbness and Denies tingling Neurologic: Denies dizziness, Denies loss of vision, Denies numbness and Denies tingling Psychiatric: Psychiatric: Reports no additional psychiatric complaints Endocrine: Endocrine: Reports no additional endocrine complaints Hematologic/Lymphatic: Hematologic/Lymphatic: Reports no additional hematologic/lymphatic complaints Allergic/Immunologic: Allergic/Immunologic: Reports no additional allergic/immunologic complaints PMFSH Past Medical History Attestation statement: The following information was validated with the patient. Source: old records reviewed and nursing notes reviewed Social History Social History (Reviewed 03/22/23 @ 07:36 by PHIL Watts Alcohol intake: never Smoked in Last 30 Days: No Use of substances other than those prescribed or required for medical reasons: No Advance Directives: No Advance Directives Information Provided: No Physical Exam ED Vital Signs: Vital Signs - 24 hr 03/22/23 06:06 03/22/23 08:00 03/22/23 08:23 Temperature 98.6 F 98.4 F 98.2 F Pulse Rate 96 66 89 Respiratory Rate 14 16 16 Blood Pressure 153/90 H 140/98 H 160/100 H Pulse Oximetry 95 99 87 L Oxygen Delivery Method Room Air Room Air Room Air 03/22/23 08:31 03/22/23 11:13 Temperature Pulse Rate 70 Respiratory Rate 16 Blood Pressure 144/95 H Pulse Oximetry 98 96 Oxygen Delivery Method Room Air Room Air BMI result Body Mass Index 33.0 Const General: cooperative, no acute distress, alert and awake Nutritional Appearance: well nourished Orientation/consciousness: patient oriented x3 Limitations: no limitations HENMT Head: Yes normal to inspection and Yes atraumatic Ears: hearing grossly normal bilaterally and external ears normal General nose exam: Normal external nose present, no nasal discharge noted and no epistaxis Face and sinus: Yes normal facial exam, No abrasion and No laceration Mouth: Normal oral and palatal mucosa present, no drooling and no muffled voice Throat: Yes abnormal tonsil (bilateral swelling, erythema) Eyes General: appearance normal, both eyes and all related structures Periorbital: periorbital findings normal Eyelids: Yes eyelids normal Conjunctivae: conjunctivae normal Pupils: Equal, round and reactive pupils present EOM: EOMs intact bilaterally Neck Neck: Yes normal visual inspection, Yes full ROM and Yes no lymphadenopathy Chest Chest palpation & inspection: normal inspection of the chest Resp Effort & Inspection: normal respiratory effort and able to speak in complete sentences GI Inspection: Yes normal to inspection Neuro General: patient oriented x3 and moves all extremities Cranial nerves: Yes Equal, round and reactive pupils present Cognition (Neuro): normal cognition Motor exam (neuro): 5/5 motor strength present throughout Sensory Exam: Normal double simultaneous stimulation for sensation Coordination: [id number] test normal Extrem General: Yes normal to inspection, Yes full ROM and Yes capillary refill normal Psych Appearance: grossly normal Mental Status: mental status grossly normal Affect: normal affect Attitude: cooperative Thought process: Normal thought process present Thought content: Normal thought content present Insight: Good insight present (Psych) Medications Administered Discontinued Medications Generic Name Dose Route Start Last Admin Trade Name Shy PRN Reason Stop Dose Admin Dexamethasone Sodium Phosphate 10 mg 03/22/23 07:30 03/22/23 08:15 Dexamethasone Sod Phosphate 10 Mg/Ml Vial PO 03/22/23 07:31 10 mg ONCE ONE Administration Iohexol 100 ml 03/22/23 08:50 03/22/23 08:50 Iohexol 350 Mg/Ml 100 Ml Infus..Btl IV 03/22/23 08:51 60 ml ONCE ONE Administration Medical Decision Making Medical Decision Making [facility] Narrative: Patient is a 42 year old assigned male at with no reported medical history presenting to the emergency department today with a sore throat and difficulty swallowing. Patient's physical exam was as noted in the physical exam portion of this chart. Patient's blood work showed an elevated WBC count of 11, an ESR of 49, and a CRP of 4.33. The rest of the patient's lab results were grossly normal. 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 I explained my physical exam findings as well as all test results to the patient. I answered all questions asked by the patient. Patient received PO Decdadron which he stated helped his symptoms significantly. I stressed the importance of the patient taking his medication as prescribed. I stressed the importance of the patient following up with his primary care provider and an ENT for the probable thyroglossal duct cyst. I stressed the importance of the patient returning to the emergency department immediately if his symptoms were to worsen or if he were to develop any dizziness, shortness of breath, difficulty breathing, chest pain, blurry vision, loss of vision, nausea, vomiting, abdominal pain, fever, chills, back pain, or any other complaints. Patient verbalized agreement and understanding with this treatment plan and discharge. Differential Diagnosis Differential Diagnoses: The differential diagnosis associated with the presentation includes Pharyngitis Peritonsilar abscess Tonsilitis Admission/Observation Consideration of admission/observation: Escalation of care including admission/observation considered Patient would have been admitted to the hospital had his work up had any findings where hospital admission was appropriate and his clinical presentation warranted hospital admission. Lab Data [facility] Lab Attestation statement: I reviewed the patient's lab results. My interpretation of these results are in the MDM portion of this chart. 03/22/23 07:57 03/22/23 07:56 Labs: Lab Results 03/22/23 03/22/23 03/22/23 Range/Units 06:23 06:23 07:56 WBC (4.8-10.8) X10*3/uL RBC (4.60-5.80) X10*6/uL Hgb (14.0-18.0) g/dl Hct (42.0-52.0) % MCV (80.0-98.0) fL MCH (27.0-33.0) pg MCHC (31.0-36.0) g/dl RDW (11.0-16.0) % Plt Count (160-400) X10*3/uL MPV (9.4-12.4) fL Immature Gran % (Auto) (0.0-0.4) % Neut % (Auto) (45-73) % Lymph % (Auto) (20-40) % [place] % (Auto) (2-11) % Eos % (Auto) (0-4) % Baso % (Auto) (0-2) % Lymph # (Auto) (1.2-4.9) X10*3/uL [place] # (Auto) (0.1-1.2) X10*3/uL Eos # (Auto) (0.0-0.4) X10*3/uL Baso # (Auto) (0.0-0.2) X10*3/uL Abs Immat Gran (auto) (0.00-0.03) X10*3/uL Absolute Neuts (auto) (2.0-8.3) x10*3/uL Absolute Nucleated RBC (0.0-0.012) X10*3/uL Nucleated RBC % (auto) (0.0-0.2) /100WBC ESR (0-15) MM/HR Sodium 142 (135-145) mmol/L Potassium 3.8 (3.3-5.1) mmol/L Chloride 107 (96-108) mmol/L Carbon Dioxide 24 (22-29) mmol/L Anion Gap 15 (12-20) BUN 13 (9-16) mg/dL Creatinine 1.18 (0.5-1.4) mg/dL Estim Creat Clear Calc 97.6 Estimated GFR > 60 Random Glucose 139 H (60-115) mg/dL Lactic Acid (0.5-2.0) mmol/L Calcium 10.2 D (8.4-10.2) mg/dL Magnesium 1.9 (1.6-2.6) mg/dL Total Bilirubin 0.4 (0.0-1.0) mg/dL AST 20 (5-37) U/L ALT 35 (0-40) U/L Alkaline Phosphatase 72 (39-117) U/L C-Reactive Protein 4.33 H (< or = 0.50) mg/dL Total Protein 8.2 H (6.5-8.0) g/dL Albumin 4.3 (3.5-5.0) g/dL Monoscreen (Negative) Influenza Type A (PCR) NEGATIVE (Negative) Influenza Type B (PCR) NEGATIVE (Negative) RSV RNA Qual (PCR) NEGATIVE (Negative) SARS-CoV-2 RNA (RT-PCR) NEGATIVE (Negative) S. pyogenes GrpA [place] Negative (Negative) 03/22/23 03/22/23 03/22/23 Range/Units 07:57 07:57 07:57 WBC 11.0 H (4.8-10.8) X10*3/uL RBC 4.98 (4.60-5.80) X10*6/uL Hgb 14.3 (14.0-18.0) g/dl Hct 43.4 (42.0-52.0) % MCV 87.1 (80.0-98.0) fL MCH 28.7 (27.0-33.0) pg MCHC 32.9 (31.0-36.0) g/dl RDW 13.0 (11.0-16.0) % Plt Count 213 (160-400) X10*3/uL MPV 12.4 (9.4-12.4) fL Immature Gran % (Auto) 0.4 (0.0-0.4) % Neut % (Auto) 63.1 (45-73) % Lymph % (Auto) 25.4 (20-40) % [place] % (Auto) 9.1 (2-11) % Eos % (Auto) 1.5 (0-4) % Baso % (Auto) 0.5 (0-2) % Lymph # (Auto) 2.8 (1.2-4.9) X10*3/uL [place] # (Auto) 1.0 (0.1-1.2) X10*3/uL Eos # (Auto) 0.2 (0.0-0.4) X10*3/uL Baso # (Auto) 0.1 (0.0-0.2) X10*3/uL Abs Immat Gran (auto) 0.04 H (0.00-0.03) X10*3/uL Absolute Neuts (auto) 6.9 (2.0-8.3) x10*3/uL Absolute Nucleated RBC 0.000 (0.0-0.012) X10*3/uL Nucleated RBC % (auto) 0.0 (0.0-0.2) /100WBC ESR 49 H (0-15) MM/HR Sodium (135-145) mmol/L Potassium (3.3-5.1) mmol/L Chloride (96-108) mmol/L Carbon Dioxide (22-29) mmol/L Anion Gap (12-20) BUN (9-16) mg/dL Creatinine (0.5-1.4) mg/dL Estim Creat Clear Calc Estimated GFR Random Glucose (60-115) mg/dL Lactic Acid 1.2 (0.5-2.0) mmol/L Calcium (8.4-10.2) mg/dL Magnesium (1.6-2.6) mg/dL Total Bilirubin (0.0-1.0) mg/dL AST (5-37) U/L ALT (0-40) U/L Alkaline Phosphatase (39-117) U/L C-Reactive Protein (< or = 0.50) mg/dL Total Protein (6.5-8.0) g/dL Albumin (3.5-5.0) g/dL Monoscreen (Negative) Influenza Type A (PCR) (Negative) Influenza Type B (PCR) (Negative) RSV RNA Qual (PCR) (Negative) SARS-CoV-2 RNA (RT-PCR) (Negative) S. pyogenes GrpA [place] (Negative) 03/22/23 Range/Units 07:57 WBC (4.8-10.8) X10*3/uL RBC (4.60-5.80) X10*6/uL Hgb (14.0-18.0) g/dl Hct (42.0-52.0) % MCV (80.0-98.0) fL MCH (27.0-33.0) pg MCHC (31.0-36.0) g/dl RDW (11.0-16.0) % Plt Count (160-400) X10*3/uL MPV (9.4-12.4) fL Immature Gran % (Auto) (0.0-0.4) % Neut % (Auto) (45-73) % Lymph % (Auto) (20-40) % [place] % (Auto) (2-11) % Eos % (Auto) (0-4) % Baso % (Auto) (0-2) % Lymph # (Auto) (1.2-4.9) X10*3/uL [place] # (Auto) (0.1-1.2) X10*3/uL Eos # (Auto) (0.0-0.4) X10*3/uL Baso # (Auto) (0.0-0.2) X10*3/uL Abs Immat Gran (auto) (0.00-0.03) X10*3/uL Absolute Neuts (auto) (2.0-8.3) x10*3/uL Absolute Nucleated RBC (0.0-0.012) X10*3/uL Nucleated RBC % (auto) (0.0-0.2) /100WBC ESR (0-15) MM/HR Sodium (135-145) mmol/L Potassium (3.3-5.1) mmol/L Chloride (96-108) mmol/L Carbon Dioxide (22-29) mmol/L Anion Gap (12-20) BUN (9-16) mg/dL Creatinine (0.5-1.4) mg/dL Estim Creat Clear Calc Estimated GFR Random Glucose (60-115) mg/dL Lactic Acid (0.5-2.0) mmol/L Calcium (8.4-10.2) mg/dL Magnesium (1.6-2.6) mg/dL Total Bilirubin (0.0-1.0) mg/dL AST (5-37) U/L ALT (0-40) U/L Alkaline Phosphatase (39-117) U/L C-Reactive Protein (< or = 0.50) mg/dL Total Protein (6.5-8.0) g/dL Albumin (3.5-5.0) g/dL Monoscreen Negative (Negative) Influenza Type A (PCR) (Negative) Influenza Type B (PCR) (Negative) RSV RNA Qual (PCR) (Negative) SARS-CoV-2 RNA (RT-PCR) (Negative) S. pyogenes GrpA [place] (Negative) Independent Interpretation I performed an independent interpretation of an: CT Scan Interpretation: My interpretation is in agreement with the radiologist's impression of this imaging study. CT SOFT TISSUE NECK WITH IV CONTRAST CLINICAL INFORMATION: Concern for peritonsillar abscess.? COMPARISON: None available.? ? TECHNIQUE: Following the intravenous administration of 100 mL of Omnipaque 350 intravenous contrast, helical imaging was performed in the axial plane with generation of coronal and sagittal reformatted images. This CT examination was performed using dose optimization techniques as appropriate, variously including the following: *Automated exposure control *Adjustment of mA and/or kV according to patient size (this includes techniques or standardized protocols for targeted exams where dose is matched to indication/reason for exam; i.e. extremities or head) *Use of iterative reconstruction technique FINDINGS: [place] tonsillitis. No discrete peripherally enhancing fluid collection to suggest a peritonsillar abscess. No extra tonsillar cellulitis. There is a 1.2 cm cyst deep to the anterior aspect of the right thyroid strap musculature on image 75 of series 2, most compatible with a thyroglossal duct cyst. There is no cervical lymphadenopathy. Small lipoma within the left thyroid gland. The submandibular and the parotid glands are unremarkable. Orbital soft tissues are unremarkable. There are no retropharyngeal fluid collections. There is multilevel cervical spondylosis. There is moderate polypoid mucosal thickening within the inferior right maxillary sinus and there is mild polypoid mucosal thickening within the inferior left maxillary sinus. Moderate mucosal thickening within the left sphenoid sinus and mild mucosal thickening within the right sphenoid sinus. The mastoid air cells are clear. Imaged upper lungs are clear. Imaged upper mediastinum is unremarkable. The partially imaged intracranial compartment is unremarkable. CT/CT soft tissue neck w IV con IMPRESSION: - [place] tonsillitis. No discrete peripherally enhancing fluid collection to suggest a peritonsillar abscess. No extra tonsillar cellulitis. ? - There is a 1.2 cm cyst deep to the anterior aspect of the right thyroid strap musculature on image 75 of series 2, most compatible with a thyroglossal duct cyst. Dictated By: Nate Sepulveda MD Signed By: Electronically signed by Nate Sepulveda MD 03/22/23 09 Radiology Impression Discussion of test interpretation with radiology: I have reviewed the radiologist's reading. Prescription Management I considered prescription management with: Antibiotic (patient prescribed an antibiotic) and Other (prescribed an oral corticosteroid) Discharge Plan Discharge Clinical Impression: Acute infective tonsillitis Patient Disposition: Home, Self-Care Instructions: Tonsillitis (ED) Additional Instructions: Your CT scan showed a 1.2 cm cyst deep to the anterior aspect of the right thyroid strap musculature most consistent with a thyroglossal duct cyst. Follow up with your primary care provider and an ENT. Return to the emergency department immediately if your symptoms worsen or if you develop any dizziness, shortness of breath, difficulty breathing, chest pain, blurry vision, loss of vision, nausea, vomiting, abdominal pain, fever, chills, back pain, or any other complaints. Pak tomograf?a computarizada mostr? un quiste de 1,2 cm de profundidad en la luz marina anterior de la musculatura de la gauri tiroidea derecha, m?s compatible con un quiste del conducto tirogloso. Sam un seguimiento con pak proveedor de atenci?n primaria y un otorrinolaring?logo. Regrese al departamento de emergencias de inmediato si bob s?ntomas empeoran o si presenta mareos, falta de aire, dificultad para respirar, dolor de pecho, visi?n borrosa, p?rdida de la visi?n, n?useas, v?mitos, dolor abdominal, fiebre, escalofr?os, dolor de espalda o cualquier otras quejas. Prescriptions: New prednisone 20 mg tablet 20 mg PO DAILY 7 Days Qty: 7 0RF penicillin V potassium 500 mg tablet 500 mg PO BID 10 Days Qty: 20 0RF No Action colchicine (gout) 0.6 mg tablet 0.6 mg PO DAILY Qty: 30 3RF prednisone 20 mg tablet 60 mg PO DAILY 5 Days Qty: 15 0RF indomethacin 50 mg capsule 50 mg PO TID PRN (Reason: gout pain ) Qty: 90 0RF Rx Instructions: administer with food or milk dexamethasone [Decadron] 6 mg tablet 6 mg PO DAILY Qty: 7 0RF colchicine (gout) 0.6 mg capsule 0.6 mg PO DAILY Qty: 30 0RF indomethacin 50 mg capsule 50 mg PO TID PRN (Reason: pain (scale score 4-6)) Qty: 60 0RF Rx Instructions: administer with food or milk colchicine (gout) 0.6 mg tablet 0.6 mg PO DAILY 30 Days Qty: 30 0RF Paxlovid 150 mg x 2- 100 mg tablet See Rx Instructions .ROUTE .COMPLEX Qty: 30 0RF Rx Instructions: take TWO 150 mg tablets of nirmatrelvir with ONE 100 mg tablet of ritonavir twice daily for 5 days albuterol sulfate 90 mcg/actuation aerosol powdr breath activated 2 inh inhalation Q4-6H PRN (Reason: shortness of breath or wheezing) Qty: 1 0RF benzonatate 100 mg capsule 100 mg PO BID PRN (Reason: cough) Qty: 20 0RF prednisone 20 mg tablet 60 mg PO DAILY 5 Days Qty: 15 0RF ketorolac 10 mg tablet 10 mg PO TID PRN (Reason: pain) 5 Days Qty: 15 0RF Referrals: [facility] [Provider Group] (Call to establish and follow up with an ENT specialist. Llame para establecer y javier seguimiento con un otorrinolaring?logo.) Beau Mays III, MD [Primary Care Provider] - Interventions: ED Discharge Assessment Last Done: 03/22/23 11:13 Discharge Date/Time: 03/22/23 11:13 Print Language: Japanese
[2023-03-22 06:47] LABS: IDNOW Serial# 08D9AD1C; Strep A Nucleic Acid Negative (Negative)
[2023-03-22 07:13] LABS: Influenza A PCR NEGATIVE (Negative); Influenza B PCR NEGATIVE (Negative); Resp Syncy Virus RNA Qual PCR NEGATIVE (Negative); SARS COV2 PCR INHOUSE NEGATIVE (Negative)
[2023-03-22 08:00] VITALS: BP 140/98; PULSE 66; RESP 16; TEMP 36.9; O2SAT 99
--- NOTE | 2023-03-22 08:00 | PC.NURSE ---
pt axox4, vss, respirations even and unlabored, afebrile, sats 99% RA. pt reports sore throat, burning sensation when swallowing; assessed pain level. pt denies cough/fever/n/v/d/cp/sob. lung sounds cta. iv established, labs drawn; tech obtaining second set of cultures. awaiting ct scan. all needs met at this time; call davis within reach.
[2023-03-22 08:02] LABS: MANUAL DIFF FLAG NO
[2023-03-22 08:05] LABS: Basophils Absolute Auto 0.1 X10*3/uL (0.0-0.2); Basophils Percent Auto 0.5 % (0-2); Eosinophils Absolute Auto 0.2 X10*3/uL (0.0-0.4); Eosinophils Percent Auto 1.5 % (0-4); Hematocrit 43.4 % (42.0-52.0); Hemoglobin 14.3 g/dl (14.0-18.0); Imm Gran Abs Auto 0.04 X10*3/uL (0.00-0.03); Imm Gran Pct Auto 0.4 % (0.0-0.4); Lymphocytes Absolute Auto 2.8 X10*3/uL (1.2-4.9); Lymphocytes Percent Auto 25.4 % (20-40); Mean Corpuscular HGB Conc 32.9 g/dl (31.0-36.0); Mean Corpuscular Hemoglobin 28.7 pg (27.0-33.0); Mean Corpuscular Volume 87.1 fL (80.0-98.0); Mean Platelet Volume 12.4 fL (9.4-12.4); Monocytes Percent Auto 9.1 % (2-11); Neutrophils Absolute Auto 6.9 x10*3/uL (2.0-8.3); Neutrophils Percent Auto 63.1 % (45-73); Platelet Count 213 X10*3/uL (160-400); Red Blood Count 4.98 X10*6/uL (4.60-5.80)
[2023-03-22] MEDS: dexAMETHasone sod phosphate 10 MG/ML VIAL PO (08:15)
[2023-03-22 08:17] LABS: Lactic Acid 1.2 mmol/L (0.5-2.0)
[2023-03-22 08:22] LABS: Alanine Aminotransferase 35 U/L (0-40); Albumin Level 4.3 g/dL (3.5-5.0); Alkaline Phosphatase 72 U/L (39-117); Anion Gap 15 (12-20); Aspartate Amino Transferase 20 U/L (5-37); Bilirubin Total 0.4 mg/dL (0.0-1.0); Blood Urea Nitrogen 13 mg/dL (9-16); C Reactive Protein 4.33 mg/dL (< or = 0.50); Calcium 10.2 mg/dL (8.4-10.2); Carbon Dioxide 24 mmol/L (22-29); Chloride 107 mmol/L (96-108); Creatinine Clr Calc Pharmacy 97.6; Estimated Glomerular Filt Rate > 60; Glucose Random 139 mg/dL (60-115); Magnesium 1.9 mg/dL (1.6-2.6); Potassium 3.8 mmol/L (3.3-5.1); Sodium 142 mmol/L (135-145); Total Protein 8.2 g/dL (6.5-8.0)
[2023-03-22 08:23] VITALS: BP 160/100; PULSE 89; RESP 16; TEMP 36.8; O2SAT 87
[2023-03-22 08:31] VITALS: O2SAT 98
[2023-03-22 08:50] LABS: Erythrocyte Sedimentation Rate 49 MM/HR (0-15)
[2023-03-22] MEDS: iohexoL 350 MG/ML 100 ML INFUS..BTL IV (08:50)
[2023-03-22 09:54] LABS: Monotest Negative (Negative)
[2023-03-22 11:13] VITALS: BP 144/95; PULSE 70; RESP 16; O2SAT 96
== END 2023-03-22 11:13 | disposition home or self-care (01) ==
PROVIDERS: Physician Assistant Medical; Emergency Provider Emergency Medicine; PCP Internal Medicine
DX: J03.90 Acute tonsillitis, unspecified (principal); R13.10 Dysphagia, unspecified; Z20.822 Contact with and (suspected) exposure to COVID-19; Z20.828 Contact with and (suspected) exposure to other viral communicable diseases; Z79.899 Other long term (current) drug therapy
CPT/HCPCS: 0241U; 36415; 70491; 80053; 83605; 83735; 85025; 85652; 86140; 86308; 87040; 87651; 99284; J1100; Q9967

== ENCOUNTER 2023-08-16 21:10 | Emergency (ER) | payer SELFPAY ==
--- NOTE | 2023-08-16 | ECG_ITS ---
Test Reason : DIZZINESS Blood Pressure : / mmHG Vent. Rate : 079 BPM Atrial Rate : 079 BPM P-R Int : 158 ms QRS Dur : 090 ms QT Int : 388 ms P-R-T Axes : 007 -33 -08 degrees QTc Int : 444 ms Normal sinus rhythm Left axis deviation Borderline ECG When compared with ECG of 26-AUG-2015 19:52, No significant change was found Referred By: Generic ED Physician Electronically Signed By:ARLETH TALBOT
[2023-08-16 21:48] VITALS: BP 146/92; PULSE 75; RESP 18; TEMP 36.6; O2SAT 97; BMI 33.0
[2023-08-16 23:12] LABS: MANUAL DIFF FLAG SCAN; SCAN SMEAR FLAG 1
[2023-08-16 23:20] LABS: Basophils Absolute Auto 0.1 X10*3/uL (0.0-0.2); Basophils Percent Auto 0.5 % (0-2); Eosinophils Absolute Auto 0.1 X10*3/uL (0.0-0.4); Eosinophils Percent Auto 0.9 % (0-4); Hematocrit 45.1 % (42.0-52.0); Hemoglobin 15.2 g/dl (14.0-18.0); Imm Gran Abs Auto 0.03 X10*3/uL (0.00-0.03); Imm Gran Pct Auto 0.3 % (0.0-0.4); Lymphocytes Absolute Auto 2.9 X10*3/uL (1.2-4.9); Lymphocytes Percent Auto 28.2 % (20-40); Mean Corpuscular HGB Conc 33.7 g/dl (31.0-36.0); Mean Corpuscular Hemoglobin 28.8 pg (27.0-33.0); Mean Corpuscular Volume 85.6 fL (80.0-98.0); Mean Platelet Volume 13.2 fL (9.4-12.4); Monocytes Absolute Auto 0.8 X10*3/uL (0.1-1.2); Monocytes Percent Auto 7.3 % (2-11); Neutrophils Absolute Auto 6.5 x10*3/uL (2.0-8.3); Neutrophils Percent Auto 62.8 % (45-73); Platelet Count 210 X10*3/uL (160-400); Red Blood Count 5.27 X10*6/uL (4.60-5.80); Red Cell Distribution Width 13.2 % (11.0-16.0); White Blood Count 10.4 X10*3/uL (4.8-10.8)
[2023-08-16 23:21] LABS: PLT ABN DIST 1
--- NOTE | 2023-08-16 23:24 | ED_ITS ---
HPI - Dizziness General Chief Complaint: Dizziness Stated Complaint: elevated bp, nausea dizziness Time Seen by Provider: 08/16/23 23:22 Source: patient and family Mode of arrival: ambulatory Limitations: no limitations History of Present Illness HPI Narrative: Patient with no diagnosed history of hypertension noted to have blood pressure 141/95 at home earlier today was feeling slightly dizzy and nausea with mild headache is gone by now no vomiting repeat blood pressure in the ER was 133/86 patient was worried about the hypertension which brought him to the ER, patient had once transient hypertension in 09/11 and was given amlodipine which he has not taking anymore as blood pressure been normal usual blood pressure is 1 20s and 80s no increased salt intake no recent weight gain no chest pain or palpitation Related Data Previous Rx's Medication Instructions Recorded colchicine 0.6 mg capsule 0.6 mg PO DAILY #30 caps 07/22/21 dexamethasone 6 mg tablet 6 mg PO DAILY #7 tabs 07/22/21 (Decadron) indomethacin 50 mg capsule 50 mg PO TID PRN pain (scale score 07/22/21 4-6) #60 caps colchicine 0.6 mg tablet 0.6 mg PO DAILY 30 days #30 tabs 07/23/21 nirmatrelvir 300 mg (150 mg See Rx Instructions PO .COMPLEX 03/04/22 x2)-ritonavir 100 mg tablet,dose #30 tabs pack (Paxlovid) colchicine 0.6 mg tablet 0.6 mg PO DAILY #30 tabs 09/18/22 indomethacin 50 mg capsule 50 mg PO TID PRN gout pain #90 09/18/22 caps prednisone 20 mg tablet 60 mg (3 x 20 mg) PO DAILY 5 days 09/18/22 #15 tabs albuterol sulfate 90 mcg/actuation 2 inh inhalation Q4-6H PRN 12/11/22 breath activated powder inhaler shortness of breath or wheezing #1 ea benzonatate 100 mg capsule 100 mg PO BID PRN cough #20 caps 12/11/22 ketorolac 10 mg tablet 10 mg PO TID PRN pain 5 days #15 12/11/22 tabs prednisone 20 mg tablet 60 mg (3 x 20 mg) PO DAILY 5 days 12/11/22 #15 tabs penicillin V potassium 500 mg 500 mg PO BID 10 days #20 tabs 03/22/23 tablet prednisone 20 mg tablet 20 mg PO DAILY 7 days #7 tabs 03/22/23 Allergies Allergy/AdvReac Type Severity Reaction Status Date / Time No Known Allergies Allergy Verified 03/22/23 06:16 Review of Systems 2 Review of Systems: Yes all other systems are reviewed and are negative [facility] Social History Social History Alcohol intake: never Smoked in Last 30 Days: Yes Use of substances other than those prescribed or required for medical reasons: No Advance Directives: No Advance Directives Information Provided: Yes Physical Exam 2 Vital Signs: Vital Signs: Last Vital Signs Temp 98 F 08/16/23 21:48 Pulse 76 08/17/23 00:31 Resp 15 08/17/23 00:31 BP 133/88 08/17/23 00:31 Pulse Ox 98 08/17/23 00:31 O2 Del Method Room Air 08/17/23 00:31 BMI result Body Mass Index 33.0 Appearance: Alert. Oriented X3. No acute distress. Eyes: PERRLA, No Nystagmus ENT: Pharynx normal. Oral Mucosa moist Neck: Normal inspection. Neck supple. CVS: Normal heart rate and rhythm. Pulses normal. Respiratory: No respiratory distress. Equal air entry bilateral, no wheezing/rales/rhonchi Abdomen: Soft and nontender. Bowel sounds are present, no mass palpable, no CVA tenderness Skin: Skin warm and dry. Normal skin color. Normal skin turgor. Extremities: No lower extremity edema. No calf tenderness Neuro: Oriented X 3. No motor deficit. No sensory deficit.No cerebellar signs , cranial nerves II-XII intact Medical Decision Making Medical Decision Making [facility] Narrative: Patient with transient high blood pressure during stay in the ER blood pressure improved to 133/88 without any medication patient was reassured and advised to check the blood pressure upon regular basis and follow-up with PCP Differential Diagnosis Differential Diagnoses: The differential diagnosis associated with the presentation includes Hypertension/vertigo/migraine Lab Data [facility] Lab Attestation statement: I reviewed the patient's lab results. 08/16/23 22:58 08/16/23 22:58 Labs: Lab Results 08/16/23 Range/Units 22:58 WBC 10.4 (4.8-10.8) X10*3/uL RBC 5.27 (4.60-5.80) X10*6/uL Hgb 15.2 (14.0-18.0) g/dl Hct 45.1 (42.0-52.0) % MCV 85.6 (80.0-98.0) fL MCH 28.8 (27.0-33.0) pg MCHC 33.7 (31.0-36.0) g/dl RDW 13.2 (11.0-16.0) % Plt Count 210 (160-400) X10*3/uL MPV 13.2 H (9.4-12.4) fL Immature Gran % (Auto) 0.3 (0.0-0.4) % Neut % (Auto) 62.8 (45-73) % Lymph % (Auto) 28.2 (20-40) % [place] % (Auto) 7.3 (2-11) % Eos % (Auto) 0.9 (0-4) % Baso % (Auto) 0.5 (0-2) % Lymph # (Auto) 2.9 (1.2-4.9) X10*3/uL [place] # (Auto) 0.8 (0.1-1.2) X10*3/uL Eos # (Auto) 0.1 (0.0-0.4) X10*3/uL Baso # (Auto) 0.1 (0.0-0.2) X10*3/uL Abs Immat Gran (auto) 0.03 (0.00-0.03) X10*3/uL Absolute Neuts (auto) 6.5 (2.0-8.3) x10*3/uL Absolute Nucleated RBC 0.000 (0.0-0.012) X10*3/uL Nucleated RBC % (auto) 0.0 (0.0-0.2) /100WBC Smear Tech's Comments VERIFIED Sodium 140 (135-145) mmol/L Potassium 3.5 (3.3-5.1) mmol/L Chloride 106 (96-108) mmol/L Carbon Dioxide 26 (22-29) mmol/L Anion Gap 12 (12-20) BUN 10 (9-16) mg/dL Creatinine 0.99 (0.5-1.4) mg/dL Estim Creat Clear Calc 116.3 Estimated GFR > 60 Random Glucose 95 (60-115) mg/dL Calcium 10.0 (8.4-10.2) mg/dL Total Bilirubin 0.3 (0.0-1.0) mg/dL Direct Bilirubin 0.1 (0.0-0.5) mg/dL AST 20 (5-37) U/L ALT 31 (0-40) U/L Alkaline Phosphatase 70 (39-117) U/L Troponin I High Sens < 2.7 (<3.5-35.0) ng/L Total Protein 8.7 H (6.5-8.0) g/dL Albumin 4.6 (3.5-5.0) g/dL Lipase 22 (8-78) U/L Independent Interpretation I performed an independent interpretation of an: EKG Interpretation: Normal sinus rhythm heart rate 79 beats per minute and left axis deviation no acute ST wave changes no LVH no ischemia Discharge Plan Discharge Clinical Impression: Hypertension Patient Disposition: Home, Self-Care Instructions: How to Take a Blood Pressure (ED), Low-Sodium Diet (ED) Additional Instructions: Your have borderline hypertension Decrease salt intake, exercise Normal blood pressure should be less than 140/90 if blood pressure persistently higher than 140/90 you may need medication Follow-up with your PCP Prescriptions: No Action colchicine 0.6 mg tablet 0.6 mg PO DAILY Qty: 30 3RF prednisone 20 mg tablet 60 mg PO DAILY 5 Days Qty: 15 0RF indomethacin 50 mg capsule 50 mg PO TID PRN (Reason: gout pain ) Qty: 90 0RF Rx Instructions: administer with food or milk dexamethasone [Decadron] 6 mg tablet 6 mg PO DAILY Qty: 7 0RF colchicine 0.6 mg capsule 0.6 mg PO DAILY Qty: 30 0RF indomethacin 50 mg capsule 50 mg PO TID PRN (Reason: pain (scale score 4-6)) Qty: 60 0RF Rx Instructions: administer with food or milk colchicine 0.6 mg tablet 0.6 mg PO DAILY 30 Days Qty: 30 0RF Paxlovid 150 mg x 2- 100 mg tablet See Rx Instructions .ROUTE .COMPLEX Qty: 30 0RF Rx Instructions: take TWO 150 mg tablets of nirmatrelvir with ONE 100 mg tablet of ritonavir twice daily for 5 days prednisone 20 mg tablet 20 mg PO DAILY 7 Days Qty: 7 0RF penicillin V potassium 500 mg tablet 500 mg PO BID 10 Days Qty: 20 0RF albuterol sulfate 90 mcg/actuation aerosol powdr breath activated 2 inh inhalation Q4-6H PRN (Reason: shortness of breath or wheezing) Qty: 1 0RF benzonatate 100 mg capsule 100 mg PO BID PRN (Reason: cough) Qty: 20 0RF prednisone 20 mg tablet 60 mg PO DAILY 5 Days Qty: 15 0RF ketorolac 10 mg tablet 10 mg PO TID PRN (Reason: pain) 5 Days Qty: 15 0RF Interventions: ED Discharge Assessment Last Done: 08/17/23 00:32 Discharge Date/Time: 08/17/23 00:33
[2023-08-16 23:26] LABS: SLIDE REVIEW VERIFIED
[2023-08-16 23:32] LABS: Alanine Aminotransferase 31 U/L (0-40); Albumin Level 4.6 g/dL (3.5-5.0); Alkaline Phosphatase 70 U/L (39-117); Anion Gap 12 (12-20); Aspartate Amino Transferase 20 U/L (5-37); Bilirubin Direct 0.1 mg/dL (0.0-0.5); Bilirubin Total 0.3 mg/dL (0.0-1.0); Blood Urea Nitrogen 10 mg/dL (9-16); Carbon Dioxide 26 mmol/L (22-29); Chloride 106 mmol/L (96-108); Creatinine Clr Calc Pharmacy 116.3; Estimated Glomerular Filt Rate > 60; Glucose Random 95 mg/dL (60-115); Lipase 22 U/L (8-78); Potassium 3.5 mmol/L (3.3-5.1); Sodium 140 mmol/L (135-145); Total Protein 8.7 g/dL (6.5-8.0); Troponin-I High Sensitivity < 2.7 ng/L (<3.5-35.0)
[2023-08-17 00:31] VITALS: BP 133/88; PULSE 76; RESP 15; O2SAT 98
== END 2023-08-17 00:33 | disposition home or self-care (01) ==
PROVIDERS: Emergency Provider Internal Medicine; PCP Internal Medicine
DX: R42 Dizziness and giddiness (principal); R11.2 Nausea with vomiting, unspecified; R94.31 Abnormal electrocardiogram [ECG] [EKG]; I10 Essential (primary) hypertension; Z79.899 Other long term (current) drug therapy
CPT/HCPCS: 36415; 80048; 80076; 83690; 84484; 85025; 93005; 99283; 99284

== ENCOUNTER → 2023-08-16 22:52 | Outpatient (BNV) | payer SELFPAY | PROVIDERS: Emergency Provider Internal Medicine; PCP Internal Medicine; Visit Provider Internal Medicine | DX: R42 Dizziness and giddiness (principal) | CPT/HCPCS: 93010 ==

== ENCOUNTER 2024-01-19 05:53 | Emergency (ER) | payer OTHER, SELFPAY ==
--- NOTE | ~2024-01-19 | XR_ITS ---
EXAMINATION: XR TOES, LEFT CLINICAL INFORMATION: Great toe swelling. Question gout. COMPARISON: Previous x-ray November 2022 TECHNIQUE: 3 views of the left toes were obtained. FINDINGS: Bone alignment is normal. No fracture or dislocation. Normal joint spaces. No erosions. Normal soft tissues. No soft tissue calcification. XR/XR toe LT min 2V IMPRESSION: Unremarkable examination.
[2024-01-19 06:10] VITALS: BP 162/105; PULSE 84; RESP 18; TEMP 36.8; O2SAT 98; BMI 33.1
--- OUTSIDE RECORDS SUMMARY | 2024-01-19 06:22 | XMS_ITS | Continuity of Care Document ---
Author Organization [facility] Address [address] [place] [address]- Care Team Providers Care Environmental Manager Name Role Phone Mariann Thurston MD Primary Care Physician Encounter [facility] Date(s): 12/19/22 - 12/19/[address] [address]- Discharge Disposition: A-D/C Home Attending Physician: Morgan Hinojosa MD Admitting Physician: Morgan Hinojosa MD Referring Physician: Not on Staff, Referring MD Allergies, Adverse Reactions, Alerts Substance Reaction Severity Status shellfish Active Medications amLODIPine 2.5 mg oral tablet 2.5 mg, 1, tablet, By Mouth, Daily, Refills 0, Maintenance, 12/19/22 12:37:00 EDT, Partial fill upon patient request if the prescription is for a schedule II opioid drug. Start Date: 12/19/22 Status: Ordered atorvastatin 40 mg oral tablet 1 tablet = 40 mg, By Mouth, Daily, # 30 tablet, 5 Refills, Maintenance, 12/19/22 12:37:00 EDT, Tablet, Partial fill upon patient request if the prescription is for a schedule II opioid drug. Start Date: 12/19/22 Status: Ordered cyclobenzaprine 10 mg oral tablet 10 mg, 1, tablet, By Mouth, 3 times a day, PRN, for 10 days, # 30 tablet, Refills 0, Tot. Refills 0, Acute 12/29/22 16:03:00 EDT, for spasm, 12/19/22 16:03:00 EDT, Route to Pharmacy Electronically, [facility]/pharmacy #[id number], Partial fill upon patient request... Start Date: 12/19/22 Stop Date: 12/29/22 Status: Ordered fenofibrate 150 mg oral capsule 1 capsule = 150 mg, By Mouth, Daily, # 30 capsule, 0 Refills, Maintenance, 12/19/22 12:37:00 EDT, Capsule, Partial fill upon patient request if the prescription is for a schedule II opioid drug. Start Date: 12/19/22 Status: Ordered FLUoxetine 10 mg oral capsule 10 mg, 1, capsule, By Mouth, Daily, # 30 capsule, Refills 0, Maintenance, 12/19/22 12:36:00 EDT, Partial fill upon patient request if the prescription is for a schedule II opioid drug. Start Date: 12/19/22 Status: Ordered glipiZIDE 5 mg oral tablet 10 mg, 2, tablet, By Mouth, Daily, # 30 tablet, Refills 0, Maintenance, 12/19/22 12:35:00 EDT, Partial fill upon patient request if the prescription is for a schedule II opioid drug. Start Date: 12/19/22 Status: Ordered ibuprofen 600 mg oral tablet 600 mg, 1, tablet, By Mouth, 3 times a day, for 30 days, # 90 tablet, Refills 0, Tot. Refills 0, Acute 01/18/23 16:03:00 EDT, 12/19/22 16:03:00 EDT, Route to Pharmacy Electronically, [facility]/pharmacy #[id number], Partial fill upon patient request if the prescri... Start Date: 12/19/22 Stop Date: 01/18/23 Status: Ordered lisinopril 5 mg oral tablet 5 mg, 1, tablet, By Mouth, Daily, Refills 0, Maintenance, 12/19/22 12:35:00 EDT, Partial fill upon patient request if the prescription is for a schedule II opioid drug. Start Date: 12/19/22 Status: Ordered Metformin = 1,000 mg, By Mouth, 2 times a day, 0 Refills, Maintenance, 12/19/22 12:35:00 EDT, Partial fill upon patient request if the prescription is for a schedule II opioid drug. Start Date: 12/19/22 Status: Ordered oxyCODONE 5 mg oral tablet 5 mg, 1, tablet, By Mouth, Every 6 hours, PRN, for 5 days, # 15 tablet, Refills 0, Tot. Refills 0, Acute 12/24/22 16:03:00 EDT, Pain , Severe, 12/19/22 16:03:00 EDT, Route to Pharmacy Electronically,[facility]/pharmacy #[id number], Partial fill upon patient reque... Start Date: 12/19/22 Stop Date: 12/24/22 Status: Ordered Toradol Inj 15 mg, Injection, IV Push Slowly, Once, STAT, 12/19/22 14:01:00 EDT, Stop date 12/19/22 14:01:00 EDT Start Date: 12/19/22 Stop Date: 12/19/22 Status: Completed Trulicity Pen 1.5 mg/0.5 mL subcutaneous solution 0.5 mL = 1.5 mg, Subcutaneous Injection, Every week, rotate injection sites, # 2 mL, 0 Refills, Maintenance, 12/19/22 12:36:00 EDT, Solution, Partial fill upon patient request if the prescription is for a schedule II opioid drug. Start Date: 12/19/22 Status: Ordered Results Radiology Reports * Exam Date Time Procedure Performing Provider Status 12/19/22 2:[address] Abdomen and Pelvis W/O Contrast Patricia Young; Auth (Verified) Notes: (CT Abdomen and Pelvis W/O Contrast) Reason For Exam: Flank pain, kidney stone suspected;Other: RESULT: CT Abdomen and Pelvis W/O Contrast CT Abdomen and Pelvis W/O Contrast Hx of Present Illness: 3 days L flank pain, went to [facility] last night but LWBS. Feels pressure in flank area when urinating, only peed a couple of times in the past 3-4 days. Has hx kidney stones manyyears ago.; Reason: Other:; Flank pain, kidney stone suspected; Clinical Question(s): Calculus; Left Side flank TECHNIQUE: Spiral CT through the abdomen and pelvis without IV contrast formatted in 3 planes. Thisstudy was performed without oral contrast. Weight- based protocol using automatic tube modulation was used to optimize exposure parameters. COMPARISON: None FINDINGS: The heart is normal in size. There is no pericardial effusion. The visualized lung bases are unremarkable. The liver has an unremarkable unenhanced appearance. Cholelithiasis is seen without evidence of cholecystitis. The spleen, pancreas, and adrenal glands have an unremarkable unenhanced appearance. No right or left nephrolithiasis is seen. There is a left upper pole exophytic cyst measuring 6.4 cm. No hydronephrosis is seen within either kidney. The bladder is distended and unremarkable. The appendix is unremarkable. There is no bowel obstruction. There is no free air, free fluid, or lymphadenopathy. The osseous structures are intact. IMPRESSION: There is no acute abnormality. WSN: [id number] Ordering Physician: Morgan Hinojosa Dictated By: Karen Curtis MD Dictated Date/Time: 12/19/22 3:03 pm Reviewed By: Karen Curtis MD Signed By: Karen Curtis MD Signed Date/Time: 12/19/22 3:03 pm Transcribed By: MOOKIE Transcribed Date/Time: 12/19/22 3:00 pm Vital Signs Most recent to oldest [Reference Range]: 1 2 Height 179 cm (12/19/22 12:32 PM) Weight 105.4 kg (12/19/22 12:32 PM) Oxygen Saturation [94-100 %] 98 % (12/19/22 12:32 PM) Pulse Rate [55-90 bpm] 85 bpm (12/19/22 12:32 PM) Blood Pressure [90-138/55-84 mm Hg] 153/ 90mm Hg *H* (12/19/22 12:32 PM) Respiratory Rate [16-30 br/min] 18 br/mi n (12/19/22 3:06 PM) 16 br/min (12/19/22 12:32 PM) Temperature [96.8-100.4 DegF] 99.5 DegF (12/19/22 12:32 PM) Mode of Delivery (Oxygen) Room air (12/19/22 12:32 PM) Temperature Route Temporal (12/19/22 12:32 PM) Dry Weight 105.4 kg (12/19/22 12:32 PM) Weight Obtained Via Standing scale (12/19/22 12:32 PM) Dry Weight Obtained Via Standing scale (12/19/22 12:32 PM) Note * Morgan Hinojosa MD: PERFORM Event Display: Patient Education Leaflets Authored Date: [id number] Flank Pain with Uncertain Cause ?? [id number] Flank Pain with Uncertain Cause The flank is the area between your upper belly (abdomen) and your back. Pain there is often caused by a problem with your kidneys. It might be a kidney infection or a kidney stone. Other causes of flank pain include spinal arthritis, a pinched nerve from a back injury, a rib injury, a bruise, a back muscle strain, inflammation, or spasm. The cause of your flank pain is not certain. You may need other tests. Home care Follow these tips when caring for yourself at home: ??? You may use acetaminophen or ibuprofen to control pain, unless your healthcare provider prescribed another medicine. If you have chronic liver or kidney disease, talk with your provider before taking these medicines. Also talk with your provider first if you???ve ever had a stomach ulcer or digestive bleeding. ??? If the pain is coming from your muscles, you may get relief with ice or heat. During the first 2 days after the injury, put an ice pack on the painful area for 20 minutes every 2 to 4 hours. This will reduce swelling and pain. A hot shower, hot bath, or heating pad works well for a muscle spasm. You can start with ice, then switch to heat after 2 days. You might find that alternating ice and heat works well. Use the method that feels the best to you. ?? Follow-up care Follow up with your healthcare provider if your symptoms don???t get better over the next few days. ?? When to seek medical advice Call your healthcare provider right away??if any of these happen: ??? Repeated vomiting ??? Fever of 100.4??F (38??C) or higher, or as directed by your healthcare provider ??? Chills ??? Flank pain that gets worse ??? Pain that spreads to the front of your belly (abdomen) ??? Dizziness, weakness, or fainting ??? Blood in your urine ??? Burning feeling when you urinate or the need to urinate often??? Pain in one of your legs that gets worse ??? Numbness or weakness in a leg ?? Last Reviewed Date: 2022 ?? [id number] [employer]. All rights reserved. This information is not intended as a substitute for professional medical care. Always follow your healthcare professional's instructions. ?? CT Abdomen and Pelvis WO contrast * [facility] , CIS S: TRANSCRIBE Ever RUSSELL , Karen Oswald: VERIFY Event Display: Result: Authored Date: [id number] CT Abdomen and Pelvis W/O Contrast Hx of Present Illness: 3 days L flank pain, went to [facility] last night but LWBS. Feels pressure in flank area when urinating, only peed a couple of times in the past 3-4 days. Has hx kidney stones manyyears ago.; Reason: Other:; Flank pain, kidney stone suspected; Clinical Question(s): Calculus; Left Side flank TECHNIQUE: Spiral CT through the abdomen and pelvis without IV contrast formatted in 3 planes. Thisstudy was performed without oral contrast. Weight- based protocol using automatic tube modulation was used to optimize exposure parameters. COMPARISON: None FINDINGS: The heart is normal in size. There is no pericardial effusion. The visualized lung bases are unremarkable. The liver has an unremarkable unenhanced appearance. Cholelithiasis is seen without evidence of cholecystitis. The spleen, pancreas, and adrenal glands have an unremarkable unenhanced appearance. No right or left nephrolithiasis is seen. There is a left upper pole exophytic cyst measuring 6.4 cm. No hydronephrosis is seen within either kidney. The bladder is distended and unremarkable. The appendix is unremarkable. There is no bowel obstruction. There is no free air, free fluid, or lymphadenopathy. The osseous structures are intact. IMPRESSION: There is no acute abnormality. WSN: [id number] Ordering Physician: Morgan Hinojosa Dictated By: Karen Curtis MD Dictated Date/Time: 12/19/22 3:03 pm Reviewed By: Karen Curtis MD Signed By: Karen Curtis MD Signed Date/Time: 12/19/22 3:03 pm Transcribed By: MOOKIE Transcribed Date/Time: 12/19/22 3:00 pm Patient Care team information Care Team Personnel Name: Mariann Thurston MD Position: Reference Physician Member Role: PCP Address: Address: [address] [place] [id number]- Name: Morgan Hinojosa MD Position: [facility] ED Medicine MD Member Role: Admitting Physician Address: Address: [address] [place] [id number]- Name: Amilcar Pradhan RN Position: [facility] ED RN W/OE and Tasks Member Role: Patient Care Provider Name: Candace Marquez Position: [facility] ED TA [facility] Member Role: Patient Care Provider Care Team Related Persons Name: FARSHAD KOHLI Address: home [address] [place] [address]
--- OUTSIDE RECORDS SUMMARY | 2024-01-19 06:22 | XMS_ITS | Continuity of Care Document ---
Author Organization [facility] ter Address [address] [place] [id number]- Care Team Providers Care Open Source Developer Name Role Phone Mariann Thurston MD Primary Care Physician [phone] Encounter [facility] [place] Date(s): 01/07/21 - 01/07/[address] [address]- Discharge Disposition: A-D/C Walkout Attending Physician: Not on Staff, Attending MD Admitting Physician: Not on Staff, Admitting MD Referring Physician: Not on Staff, Referring MD Allergies, Adverse Reactions, Alerts Substance Reaction Severity Status shellfish Active Vital Signs Most recent to oldest [Reference Range]: 1 2 3 Oxygen Saturation [94-100 %] 100 % (01/07/21 8:57 PM) 97 % (01/07/21 6:41 PM) 99 % (01/07/21 4:42 PM) Pulse Rate [55-90 bpm] 62 bpm (01/07/21 8:57 PM) 102 bpm *H* (01/07/21 6:41 PM) 102 bpm *H* (01/07/21 4:42 PM) Blood Pressure [90-138/55-84 mm Hg] 160/99mm Hg *H* (01/07/21 8:57 PM) 157/96mm Hg *H* (01/07/21 6:41 PM) 153/93mm Hg *H* (01/07/21 4:42 PM) Respiratory Rate [16-30 br/min] 16 br/min (01/07/21 8:57 PM) 18 br/min (01/07/21 6:41 PM) 16 br/min (01/07/21 4:42 PM) Temperature [96.8-100.4 DegF] 98.2 DegF (01/07/21 8:57 PM) 98.8 DegF (01/07/21 6:41 PM) 98.5 DegF (01/07/21 4:42 PM) Mode of Delivery (Oxygen) Room air (01/07/21 8:57 PM) Room air (01/07/21 6:41 PM) Room air (01/07/21 4:42 PM) Blood pressure sites Arm, left (01/07/21 8:57 PM) Arm, right (01/07/21 6:41 PM) Arm, right (01/07/21 4:42 PM) Temperature Route Oral (01/07/21 8:57 PM) Oral (01/07/21 6:41 PM) Oral (01/07/21 4:42 PM)
--- NOTE | 2024-01-19 06:34 | ED.LOWEXIN ---
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 He has not taken any OTC medications for this at home. His last gout flare was around 6 months ago. He states this feels like his typical gout flare. Denies fever, chills, N/V. Denies numbness/tingling/weakness of the LLE. Denies recent tick or insect bites. Denies injury or trauma to the toe/foot. 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 Onset (ago): day(s) Injury: Left: toes Related Data Previous Rx's ?Medication ?Instructions ?Recorded colchicine 0.6 mg capsule 0.6 mg PO DAILY #30 caps 07/22/21 dexamethasone 6 mg tablet 6 mg PO DAILY #7 tabs 07/22/21 (Decadron) indomethacin 50 mg capsule 50 mg PO TID PRN pain (scale score 07/22/21 4-6) #60 caps colchicine 0.6 mg tablet 0.6 mg PO DAILY 30 days #30 tabs 07/23/21 nirmatrelvir 300 mg (150 mg See Rx Instructions PO .COMPLEX 03/04/22 x2)-ritonavir 100 mg tablet,dose #30 tabs pack (Paxlovid) colchicine 0.6 mg tablet 0.6 mg PO DAILY #30 tabs 09/18/22 indomethacin 50 mg capsule 50 mg PO TID PRN gout pain #90 09/18/22 caps prednisone 20 mg tablet 60 mg (3 x 20 mg) PO DAILY 5 days 09/18/22 #15 tabs albuterol sulfate 90 mcg/actuation 2 inh inhalation Q4-6H PRN 12/11/22 breath activated powder inhaler shortness of breath or wheezing #1 ea benzonatate 100 mg capsule 100 mg PO BID PRN cough #20 caps 12/11/22 ketorolac 10 mg tablet 10 mg PO TID PRN pain 5 days #15 12/11/22 tabs prednisone 20 mg tablet 60 mg (3 x 20 mg) PO DAILY 5 days 12/11/22 #15 tabs penicillin V potassium 500 mg 500 mg PO BID 10 days #20 tabs 03/22/23 tablet prednisone 20 mg tablet 20 mg PO DAILY 7 days #7 tabs 03/22/23 colchicine 0.6 mg tablet 0.6 mg PO DAILY #30 tabs 01/19/24 indomethacin 50 mg capsule 50 mg PO TID PRN gout pain #20 caps 01/19/24 prednisone 20 mg tablet 40 mg (2 x 20 mg) PO DAILY 5 days 01/19/24 #10 tabs Allergies Allergy/AdvReac Type Severity Reaction Status Date / Time No Known Allergies Allergy Verified 01/19/24 06:12 Review of Systems Review of Systems: Constitutional: No fever, chills, fatigue, night sweats, weight changes ENT/Mouth: No ear pain, hearing loss, nasal congestion, sinus pain, rhinorrhea, sore throat Eyes: No eye pain, swelling, redness, vision changes, discharge Cardio: No chest pain, palpitations, OWENS, orthopnea, peripheral edema Pulm: No SOB, cough, sputum, wheezing, dyspnea, hemoptysis GI: No nausea, vomiting, hematemesis, abdominal pain, diarrhea, constipation, hematochezia, melena : No irregular bleeding, dysuria, frequency, urgency, hesitancy, hematuria, flank pain, urinary flow changes, urinary incontinence or retention MSK: No back pain, neck pain, joint pain, myalgias, +L great toe pain/swelling Skin: No lesions, rashes Neuro: No weakness, numbness, paresthesias, LOC, dizziness, headache Psych: No anxiety/panic, depression, SI/HI, AH/VH All other systems reviewed and are negative. [facility] Past Medical History Attestation statement: The following information was validated with the patient. Source: old records reviewed and nursing notes reviewed Social History Social History Alcohol intake: never Smoked in Last 30 Days: No Use of substances other than those prescribed or required for medical reasons: No Advance Directives: No Advance Directives Information Provided: Yes Do you have a plan to hurt others: No Plan Physical Exam Vital Signs: Vital Signs: Last Vital Signs Temp 98.2 F 06/01/24 06:10 Pulse 84 01/19/24 06:10 Resp 18 01/19/24 06:10 BP 162/105 H 01/19/24 06:10 Pulse Ox 98 01/19/24 06:10 O2 Del Method Room Air 01/19/24 06:10 BMI result Body Mass Index 33.1 patient hypertensive, vitals otherwise wnl Const: General: cooperative, healthy appearing, comfortable and no acute distress Orientation/consciousness: patient oriented x3 Limitations: no limitations HEENT: Head: Yes normal to inspection, Yes No palpable skull fracture present, Yes normocephalic and Yes atraumatic Eyes: General: appearance normal, both eyes and all related structures Pupils: Equal, round and reactive pupils present Neck: Neck: Yes normal visual inspection, Yes full ROM, Yes no lymphadenopathy and Yes no meningeal signs Resp: Effort & Inspection: normal respiratory effort and able to speak in complete sentences Auscultation: clear to auscultation bilaterally Cardio: Rate: regular rate Rhythm: regular rhythm Back/Spine/Pelvis: Other: No midline spinous tenderness or step off deformity. No paraspinal muscle tenderness. Skin: General skin exam: no rashes or lesions noted Neuro: General: patient oriented x3, gait normal and no meningeal signs Cranial nerves: Yes Equal, round and reactive pupils present Extrem: Other: + noted swelling to left great toe, warm and tender to palpation. no overlying skin changes or obvious deformity. limited ROM to MCP of left great toe secondary to pain. FROM intact to all other digits on left foot and left ankle. 2+ dp/pt pulse. ambulating with steady gait. Course Course Course Narrative: 08-- CBC without leukocytosis or left shift. No anemia. H&H stable. uric acid elevated to 10.5. No acute electrolyte abnormality requiring intervention. Random glucose 186. X-ray of left great toe without fracture. Physical exam and workup consistent with gout flare. Colchicine, prednisone and indomethacin sent to pharmacy for treatment. He was given a dose of Toradol for pain control in ED. she discussed all workup results with patient. Patient has remained stable throughout ED visit today. Discussed worrisome signs and symptoms and when to return to the ED. All questions answered at this time. Patient is agreeable with disposition and stable for discharge. Medications Administered Discontinued Medications Generic Name Dose Route Start Last Admin Trade Name Freq PRN Reason Stop Dose Admin Ketorolac Tromethamine 30 mg 01/19/24 06:59 01/19/24 07:41 Ketorolac Tromethamine 30 Mg/Ml Vial IM 01/19/24 07:00 30 mg ONCE ONE Administration Medical Decision Making Medical Decision Making [facility] Narrative: 43 year old male with pmhx significant for gout presents to the ED today for evaluation of left great toe pain/ swelling x2 days. Hypertensive to 162/105. Vitals otherwise WNL. On exam, noted swelling to left great toe, warm and tender to palpation. no overlying skin changes or obvious deformity. limited ROM to MCP of left great toe secondary to pain. FROM intact to all other digits on left foot and left ankle. 2+ dp/pt pulse. ambulating with steady gait. Differential diagnosis include gout, pseudogout, arthritis. Low suspicion for fracture, dislocation, sprain/strain. Unlikely septic arthritis, lyme arthritis, nv compromise, threat to limb. Plan for labs, xr, disposition. Differential Diagnosis Differential Diagnoses: The differential diagnosis associated with the presentation includes as above. Admission/Observation not indicated. Lab Data [facility] Lab Attestation statement: I reviewed the patient's lab results. as above. 01/19/24 07:59 01/19/24 07:59 Labs: Lab Results 01/19/24 Range/Units 07:59 WBC 9.7 (4.8-10.8) X10*3/uL RBC 4.99 (4.60-5.80) X10*6/uL Hgb 15.0 (14.0-18.0) g/dl Hct 44.1 (42.0-52.0) % MCV 88.4 (80.0-98.0) fL MCH 30.1 (27.0-33.0) pg MCHC 34.0 (31.0-36.0) g/dl RDW 13.3 (11.0-16.0) % Plt Count 197 (160-400) X10*3/uL MPV 13.0 H (9.4-12.4) fL Immature Gran % (Auto) 0.2 (0.0-0.4) % Neut % (Auto) 56.8 (45-73) % Lymph % (Auto) 31.4 (20-40) % [place] % (Auto) 9.6 (2-11) % Eos % (Auto) 1.5 (0-4) % Baso % (Auto) 0.5 (0-2) % Lymph # (Auto) 3.0 (1.2-4.9) X10*3/uL [place] # (Auto) 0.9 (0.1-1.2) X10*3/uL Eos # (Auto) 0.2 (0.0-0.4) X10*3/uL Baso # (Auto) 0.1 (0.0-0.2) X10*3/uL Abs Immat Gran (auto) 0.02 (0.00-0.03) X10*3/uL Absolute Neuts (auto) 5.5 (2.0-8.3) x10*3/uL Absolute Nucleated RBC 0.000 (0.0-0.012) X10*3/uL Nucleated RBC % (auto) 0.0 (0.0-0.2) /100WBC Sodium 140 (135-145) mmol/L Potassium 4.6 (3.3-5.1) mmol/L Chloride 107 (96-108) mmol/L Carbon Dioxide 25 (22-29) mmol/L Anion Gap 13 (12-20) BUN 11 (9-16) mg/dL Creatinine 1.06 (0.5-1.4) mg/dL Estim Creat Clear Calc 107.8 Estimated GFR > 60 Random Glucose 186 H (60-115) mg/dL Uric Acid 10.5 H (3.4-7.0) mg/dL Calcium 9.9 (8.4-10.2) mg/dL Independent Interpretation I performed an independent interpretation of an: Plain X-Ray Interpretation: XR left great toe without fracture, agree with radiologist's interpretation. Radiology Impression Discussion of test interpretation with radiology: I have reviewed the radiologist's reading. Radiologist Impression: EXAMINATION: XR TOES, LEFT CLINICAL INFORMATION: Great toe swelling. Question gout. COMPARISON: Previous x-ray November 2022 TECHNIQUE: 3 views of the left toes were obtained. FINDINGS: Bone alignment is normal. No fracture or dislocation. Normal joint spaces. No erosions. Normal soft tissues. No soft tissue calcification. XR/XR toe LT min 2V IMPRESSION: Unremarkable examination. Prescription Management I considered prescription management with: Pain Medication (indomethacin) and Other (prednisone) Chronic Conditions Patient?s care impacted by: Other (gout) Social Determinants Patient?s care significantly limited by Social Determinants of Health including: Other Social Determinant of Health Critical Care Time Critical Care Time Critical Care Time: No Discharge Plan Discharge Clinical Impression: Gouty arthritis of left great toe Patient Disposition: Home, Self-Care Instructions: Low Purine Diet (ED), Gout (ED) Additional Instructions: You were seen in the ED for great toe pain/swelling. Your labs today show increased uric acid which is indicative of gout. The x-ray of your left great toe is unremarkable. Colchicine has been sent to your pharmacy for you to take for gout. Take this daily for 30 days. Indomethacin has been sent to your pharmacy for you to take as needed for pain. Do not take this with other NSAIDS such as motrin or aleve as this can increase risk of GI bleeding. Prednisone is a steroid that has been sent to your pharmacy for you to take for the next 5 days. If you are diabetic, make sure to monitor your sugars as this can increased blood sugar. Follow up with PCP as needed. Return with new or worsening symptoms. In the case of an emergencay call 911. Prescriptions: New prednisone 20 mg tablet 40 mg PO DAILY 5 Days Qty: 10 0RF indomethacin 50 mg capsule 50 mg PO TID PRN (Reason: gout pain) Qty: 20 0RF Rx Instructions: administer with food or milk colchicine 0.6 mg tablet 0.6 mg PO DAILY Qty: 30 0RF No Action colchicine 0.6 mg tablet 0.6 mg PO DAILY Qty: 30 3RF prednisone 20 mg tablet 60 mg PO DAILY 5 Days Qty: 15 0RF indomethacin 50 mg capsule 50 mg PO TID PRN (Reason: gout pain ) Qty: 90 0RF Rx Instructions: administer with food or milk dexamethasone [Decadron] 6 mg tablet 6 mg PO DAILY Qty: 7 0RF colchicine 0.6 mg capsule 0.6 mg PO DAILY Qty: 30 0RF indomethacin 50 mg capsule 50 mg PO TID PRN (Reason: pain (scale score 4-6)) Qty: 60 0RF Rx Instructions: administer with food or milk colchicine 0.6 mg tablet 0.6 mg PO DAILY 30 Days Qty: 30 0RF Paxlovid 150 mg x 2- 100 mg tablet See Rx Instructions .ROUTE .COMPLEX Qty: 30 0RF Rx Instructions: take TWO 150 mg tablets of nirmatrelvir with ONE 100 mg tablet of ritonavir twice daily for 5 days prednisone 20 mg tablet 20 mg PO DAILY 7 Days Qty: 7 0RF penicillin V potassium 500 mg tablet 500 mg PO BID 10 Days Qty: 20 0RF albuterol sulfate 90 mcg/actuation aerosol powdr breath activated 2 inh inhalation Q4-6H PRN (Reason: shortness of breath or wheezing) Qty: 1 0RF benzonatate 100 mg capsule 100 mg PO BID PRN (Reason: cough) Qty: 20 0RF prednisone 20 mg tablet 60 mg PO DAILY 5 Days Qty: 15 0RF ketorolac 10 mg tablet 10 mg PO TID PRN (Reason: pain) 5 Days Qty: 15 0RF Print Language: [place]
[2024-01-19] MEDS: Ketorolac Tromethamine 30 MG/ML VIAL IM (07:41)
[2024-01-19 08:03] LABS: MANUAL DIFF FLAG NO
[2024-01-19 08:29] LABS: Anion Gap 13 (12-20); Blood Urea Nitrogen 11 mg/dL (9-16); Calcium 9.9 mg/dL (8.4-10.2); Carbon Dioxide 25 mmol/L (22-29); Chloride 107 mmol/L (96-108); Creatinine Clr Calc Pharmacy 107.8; Estimated Glomerular Filt Rate > 60; Glucose Random 186 mg/dL (60-115); Potassium 4.6 mmol/L (3.3-5.1); Sodium 140 mmol/L (135-145); Uric Acid 10.5 mg/dL (3.4-7.0)
[2024-01-19 08:38] LABS: Basophils Absolute Auto 0.1 X10*3/uL (0.0-0.2); Basophils Percent Auto 0.5 % (0-2); Eosinophils Absolute Auto 0.2 X10*3/uL (0.0-0.4); Eosinophils Percent Auto 1.5 % (0-4); Hematocrit 44.1 % (42.0-52.0); Imm Gran Abs Auto 0.02 X10*3/uL (0.00-0.03); Imm Gran Pct Auto 0.2 % (0.0-0.4); Lymphocytes Percent Auto 31.4 % (20-40); Mean Corpuscular Hemoglobin 30.1 pg (27.0-33.0); Mean Corpuscular Volume 88.4 fL (80.0-98.0); Monocytes Absolute Auto 0.9 X10*3/uL (0.1-1.2); Monocytes Percent Auto 9.6 % (2-11); Neutrophils Absolute Auto 5.5 x10*3/uL (2.0-8.3); Neutrophils Percent Auto 56.8 % (45-73); Platelet Count 197 X10*3/uL (160-400); Red Blood Count 4.99 X10*6/uL (4.60-5.80); Red Cell Distribution Width 13.3 % (11.0-16.0); White Blood Count 9.7 X10*3/uL (4.8-10.8)
[2024-01-19 09:24] VITALS: BP 126/83; PULSE 80; RESP 16; TEMP 36.6; O2SAT 98
== END 2024-01-19 09:25 | disposition home or self-care (01) ==
PROVIDERS: Physician Assistant Medical; Emergency Provider Emergency Medicine; PCP Internal Medicine
DX: M10.072 Idiopathic gout, left ankle and foot (principal); M79.675 Pain in left toe(s)
CPT/HCPCS: 36415; 73660; 80048; 84550; 85025; 96372; 99284; J1885

== ENCOUNTER 2024-03-13 15:21 | Emergency (ER) | payer OTHER, SELFPAY ==
[2024-03-13 15:30] VITALS: BP 149/94; PULSE 72; RESP 16; TEMP 36.2; O2SAT 94; BMI 31.0
--- NOTE | 2024-03-13 15:31 | ED_ITS ---
HPI - General Adult General Chief complaint: Abdominal Pain Stated complaint: Vomiting, dizziness - gas inhalation? 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 He reports that he was working on his car 2 days ago. He believes he may have ?inhaled too many fumes. ? It has been 2 days since then he has had dizziness especially with lying down. He feels like the room is spinning around him He has had 3 episodes of vomiting He denies any abdominal pain to me, but did report abdominal pain to nursing staff Related Data Previous Rx's ?Medication ?Instructions ?Recorded colchicine 0.6 mg capsule 0.6 mg PO DAILY #30 caps 07/22/21 dexamethasone 6 mg tablet 6 mg PO DAILY #7 tabs 07/22/21 (Decadron) indomethacin 50 mg capsule 50 mg PO TID PRN pain (scale score 07/22/21 4-6) #60 caps colchicine 0.6 mg tablet 0.6 mg PO DAILY 30 days #30 tabs 07/23/21 nirmatrelvir 300 mg (150 mg See Rx Instructions PO .COMPLEX 03/04/22 x2)-ritonavir 100 mg tablet,dose #30 tabs pack (Paxlovid) colchicine 0.6 mg tablet 0.6 mg PO DAILY #30 tabs 09/18/22 indomethacin 50 mg capsule 50 mg PO TID PRN gout pain #90 09/18/22 caps prednisone 20 mg tablet 60 mg (3 x 20 mg) PO DAILY 5 days 09/18/22 #15 tabs albuterol sulfate 90 mcg/actuation 2 inh inhalation Q4-6H PRN 12/11/22 breath activated powder inhaler shortness of breath or wheezing #1 ea benzonatate 100 mg capsule 100 mg PO BID PRN cough #20 caps 12/11/22 ketorolac 10 mg tablet 10 mg PO TID PRN pain 5 days #15 12/11/22 tabs prednisone 20 mg tablet 60 mg (3 x 20 mg) PO DAILY 5 days 12/11/22 #15 tabs penicillin V potassium 500 mg 500 mg PO BID 10 days #20 tabs 03/22/23 tablet prednisone 20 mg tablet 20 mg PO DAILY 7 days #7 tabs 03/22/23 colchicine 0.6 mg tablet 0.6 mg PO DAILY #30 tabs 01/19/24 indomethacin 50 mg capsule 50 mg PO TID PRN gout pain #20 caps 01/19/24 prednisone 20 mg tablet 40 mg (2 x 20 mg) PO DAILY 5 days 01/19/24 #10 tabs meclizine 25 mg tablet 25 mg PO TID #20 tabs 03/13/24 Allergies Allergy/AdvReac Type Severity Reaction Status Date / Time No Known Allergies Allergy Verified 03/13/24 15:32 Review of Systems 2 Constitutional: Constitutional: Denies body ache(s), Denies chills, Denies fever(s), Denies frequent falls and Denies headache(s) Eyes: Eyes: Denies blurry vision ENT: Reports vertigo, Reports dizziness and Denies headache(s) Cardiovascular: Cardiovascular: Denies chest pain and Denies dyspnea Respiratory: Respiratory: Denies cough and Denies dyspnea Gastrointestinal: Gastrointestinal: Denies abdominal pain, Denies nausea and Denies vomiting Musculoskeletal: Musculoskeletal: Denies back pain Integumentary/Breasts: Skin/Breast: Denies skin pain Neurologic: Reports vertigo, Reports dizziness, Denies frequent falls and Denies headache(s) PMFSH Social History Social History Alcohol intake: never Advance Directives: No Advance Directives Information Provided: No Do you have a plan to hurt others: No Plan Physical Exam ED Vital Signs: Vital Signs - 24 hr 03/13/24 15:30 03/13/24 18:00 03/13/24 20:00 Temperature 97.1 F 98.5 F 98.3 F Pulse Rate 72 70 64 Respiratory Rate 16 18 18 Blood Pressure 149/94 H 158/99 H 146/86 H Pulse Oximetry 94 99 98 Oxygen Delivery Method Room Air Room Air Room Air BMI result Body Mass Index 31.0 Const General: healthy appearing, comfortable, no acute distress, alert and awake Nutritional Appearance: well nourished Orientation/consciousness: patient oriented x3 HENMT Head: Yes normocephalic and Yes atraumatic Eyes Eyelids: Yes eyelids normal Conjunctivae: conjunctivae normal Sclerae: sclerae normal Corneas: corneas normal Pupils: Equal, round and reactive pupils present EOM: EOMs intact bilaterally Neck Neck: Yes full ROM Resp Effort & Inspection: normal respiratory effort, able to speak in complete sentences and not labored GI Inspection: No distended Palpation (GI): Soft to palpation, not firm, nontender, no guarding and not rigid Skin General skin exam: elasticity normal Neuro Other: Kadi-Hallpike maneuver positive General: patient oriented x3 Cranial nerves: Yes Equal, round and reactive pupils present and Yes Bilaterally intact EOM present Cognition (Neuro): normal cognition Extrem Other: Moving all extremities well without any obvious deformities Course Course Course Narrative: This is a rapid medical exam performed by Miller Sommers NP: Additional HPI, ROS, PE not included below will be deferred to primary provider. Patient is a 43-year-old Bengali speaking male presenting to the ED with complaint of lightheadedness, nausea and vomiting for 2 days. States he inhaled some gasoline, unsure if symptoms are related. Associated chest pain. Plan: EKG, viral swabs, labs Medications Administered Discontinued Medications Generic Name Dose Route Start Last Admin Trade Name Freq PRN Reason Stop Dose Admin Sodium Chloride 1,000 mls @ 999 mls/hr 03/13/24 19:30 03/13/24 20:49 Ns IV 03/13/24 20:30 Infused .Q1H1M FABIOLA Infusion Meclizine HCl 50 mg 03/13/24 19:23 03/13/24 19:30 Meclizine Hcl 25 Mg Tablet PO 03/13/24 19:24 50 mg ONCE ONE Administration Medical Decision Making Medical Decision Making [facility] Narrative: 43-year-old male presents for evaluation of dizziness. He does describe this as room spinning consistent with vertigo. His symptoms are positional in nature. He has a positive Harviell-Hallpike maneuver. No findings consistent with central vertigo. Patient did have a carboxyhemoglobin test that was within normal limits. His labs are otherwise quite reassuring. EKG shows normal sinus rhythm with a rate of 70 beats minute. There was never any chest pain palpitations or shortness of breath to suggest cardiac origin of his dizziness. Differential Diagnosis Differential Diagnoses: The differential diagnosis associated with the presentation includes BPV Central vertigo Orthostasis Dehydration Lab Data [facility] Lab Attestation statement: I reviewed the patient's lab results. The patient has no leukocytosis, no significant anemia. Normal platelet count. No significant electrolyte/chemistry abnormalities warranting intervention. 03/13/24 16:07 03/13/24 16:07 Labs: Lab Results 03/13/24 03/13/24 Range/Units 16:07 16:13 WBC 8.5 (4.8-10.8) X10*3/uL RBC 4.91 (4.60-5.80) X10*6/uL Hgb 14.5 (14.0-18.0) g/dl Hct 42.7 (42.0-52.0) % MCV 87.0 (80.0-98.0) fL MCH 29.5 (27.0-33.0) pg MCHC 34.0 (31.0-36.0) g/dl RDW 13.1 (11.0-16.0) % Plt Count 209 (160-400) X10*3/uL MPV 13.0 H (9.4-12.4) fL Immature Gran % (Auto) 0.2 (0.0-0.4) % Neut % (Auto) 66.7 (45-73) % Lymph % (Auto) 24.9 (20-40) % [place] % (Auto) 7.1 (2-11) % Eos % (Auto) 0.6 (0-4) % Baso % (Auto) 0.5 (0-2) % Lymph # (Auto) 2.1 (1.2-4.9) X10*3/uL [place] # (Auto) 0.6 (0.1-1.2) X10*3/uL Eos # (Auto) 0.1 (0.0-0.4) X10*3/uL Baso # (Auto) 0.0 (0.0-0.2) X10*3/uL Abs Immat Gran (auto) 0.02 (0.00-0.03) X10*3/uL Absolute Neuts (auto) 5.7 (2.0-8.3) x10*3/uL Absolute Nucleated RBC 0.000 (0.0-0.012) X10*3/uL Nucleated RBC % (auto) 0.0 (0.0-0.2) /100WBC Carboxyhemoglobin % 1.7 % Sodium 144 (135-145) mmol/L Potassium 3.8 (3.3-5.1) mmol/L Chloride 110 H (96-108) mmol/L Carbon Dioxide 22 (22-29) mmol/L Anion Gap 16 (12-20) BUN 15 (9-16) mg/dL Creatinine 1.14 (0.5-1.4) mg/dL Estim Creat Clear Calc 91.2 Estimated GFR > 60 Random Glucose 141 H (60-115) mg/dL Calcium 10.3 H (8.4-10.2) mg/dL Total Bilirubin 0.5 (0.0-1.0) mg/dL AST 25 (5-37) U/L ALT 48 H (0-40) U/L Alkaline Phosphatase 65 (39-117) U/L Troponin I High Sens < 2.7 (<3.5-35.0) ng/L Total Protein 8.6 H (6.5-8.0) g/dL Albumin 4.7 (3.5-5.0) g/dL Influenza Type A (PCR) NEGATIVE (Negative) Influenza Type B (PCR) NEGATIVE (Negative) RSV RNA Qual (PCR) NEGATIVE (Negative) SARS-CoV-2 RNA (RT-PCR) NEGATIVE (Negative) Independent Interpretation I performed an independent interpretation of an: EKG Interpretation: Please see medical decision making above Discharge Plan Discharge Clinical Impression: Benign paroxysmal positional vertigo Patient Disposition: Home, Self-Care Instructions: Benign Paroxysmal Positional Vertigo (ED) Additional Instructions: Your workup in the ER was reassuring. It is likely that you have a condition called benign paroxysmal positional vertigo Stay well hydrated Take meclizine as needed for dizziness Follow-up with your primary doctor, return for new or worsening symptoms Prescriptions: New meclizine 25 mg tablet 25 mg PO TID Qty: 20 0RF No Action colchicine 0.6 mg tablet 0.6 mg PO DAILY Qty: 30 3RF prednisone 20 mg tablet 60 mg PO DAILY 5 Days Qty: 15 0RF indomethacin 50 mg capsule 50 mg PO TID PRN (Reason: gout pain ) Qty: 90 0RF Rx Instructions: administer with food or milk dexamethasone [Decadron] 6 mg tablet 6 mg PO DAILY Qty: 7 0RF colchicine 0.6 mg capsule 0.6 mg PO DAILY Qty: 30 0RF indomethacin 50 mg capsule 50 mg PO TID PRN (Reason: pain (scale score 4-6)) Qty: 60 0RF Rx Instructions: administer with food or milk colchicine 0.6 mg tablet 0.6 mg PO DAILY 30 Days Qty: 30 0RF Paxlovid 150 mg x 2- 100 mg tablet See Rx Instructions .ROUTE .COMPLEX Qty: 30 0RF Rx Instructions: take TWO 150 mg tablets of nirmatrelvir with ONE 100 mg tablet of ritonavir twice daily for 5 days prednisone 20 mg tablet 20 mg PO DAILY 7 Days Qty: 7 0RF penicillin V potassium 500 mg tablet 500 mg PO BID 10 Days Qty: 20 0RF albuterol sulfate 90 mcg/actuation aerosol powdr breath activated 2 inh inhalation Q4-6H PRN (Reason: shortness of breath or wheezing) Qty: 1 0RF benzonatate 100 mg capsule 100 mg PO BID PRN (Reason: cough) Qty: 20 0RF prednisone 20 mg tablet 60 mg PO DAILY 5 Days Qty: 15 0RF ketorolac 10 mg tablet 10 mg PO TID PRN (Reason: pain) 5 Days Qty: 15 0RF prednisone 20 mg tablet 40 mg PO DAILY 5 Days Qty: 10 0RF indomethacin 50 mg capsule 50 mg PO TID PRN (Reason: gout pain) Qty: 20 0RF Rx Instructions: administer with food or milk colchicine 0.6 mg tablet 0.6 mg PO DAILY Qty: 30 0RF Print Language: Bengali
--- NOTE | 2024-03-13 15:32 | ECG_ITS ---
Test Reason : CHEST PAINS Blood Pressure : / mmHG Vent. Rate : 070 BPM Atrial Rate : 070 BPM P-R Int : 156 ms QRS Dur : 082 ms QT Int : 400 ms P-R-T Axes : 001 -31 -10 degrees QTc Int : 432 ms Normal sinus rhythm Left axis deviation Abnormal ECG When compared with ECG of 16-AUG-2023 22:52, No significant change was found Referred By: Ale Sommers Electronically Signed By:ARLETH TALBOT
[2024-03-13 16:13] LABS: MANUAL DIFF FLAG NO
[2024-03-13 16:20] LABS: Carbon Monoxide POC 1.7 %
[2024-03-13 16:27] LABS: Carbon Monoxide Refer to POC result
[2024-03-13 16:32] LABS: Basophils Percent Auto 0.5 % (0-2); Eosinophils Absolute Auto 0.1 X10*3/uL (0.0-0.4); Eosinophils Percent Auto 0.6 % (0-4); Hematocrit 42.7 % (42.0-52.0); Hemoglobin 14.5 g/dl (14.0-18.0); Imm Gran Abs Auto 0.02 X10*3/uL (0.00-0.03); Imm Gran Pct Auto 0.2 % (0.0-0.4); Lymphocytes Absolute Auto 2.1 X10*3/uL (1.2-4.9); Lymphocytes Percent Auto 24.9 % (20-40); Mean Corpuscular Hemoglobin 29.5 pg (27.0-33.0); Monocytes Absolute Auto 0.6 X10*3/uL (0.1-1.2); Monocytes Percent Auto 7.1 % (2-11); Neutrophils Absolute Auto 5.7 x10*3/uL (2.0-8.3); Neutrophils Percent Auto 66.7 % (45-73); Platelet Count 209 X10*3/uL (160-400); Red Blood Count 4.91 X10*6/uL (4.60-5.80); Red Cell Distribution Width 13.1 % (11.0-16.0); White Blood Count 8.5 X10*3/uL (4.8-10.8)
[2024-03-13 16:39] LABS: Alanine Aminotransferase 48 U/L (0-40); Albumin Level 4.7 g/dL (3.5-5.0); Alkaline Phosphatase 65 U/L (39-117); Anion Gap 16 (12-20); Aspartate Amino Transferase 25 U/L (5-37); Bilirubin Total 0.5 mg/dL (0.0-1.0); Blood Urea Nitrogen 15 mg/dL (9-16); Calcium 10.3 mg/dL (8.4-10.2); Carbon Dioxide 22 mmol/L (22-29); Chloride 110 mmol/L (96-108); Creatinine Clr Calc Pharmacy 91.2; Estimated Glomerular Filt Rate > 60; Glucose Random 141 mg/dL (60-115); Potassium 3.8 mmol/L (3.3-5.1); Sodium 144 mmol/L (135-145); Total Protein 8.6 g/dL (6.5-8.0)
[2024-03-13 16:48] LABS: Troponin-I High Sensitivity < 2.7 ng/L (<3.5-35.0)
[2024-03-13 16:57] LABS: Influenza A PCR NEGATIVE (Negative); Influenza B PCR NEGATIVE (Negative); Resp Syncy Virus RNA Qual PCR NEGATIVE (Negative); SARS COV2 PCR INHOUSE NEGATIVE (Negative)
[2024-03-13 18:00] VITALS: BP 158/99; PULSE 70; RESP 18; TEMP 36.9; O2SAT 99
[2024-03-13] MEDS: Meclizine HCl 25 MG TABLET 50 MG PO (19:30)
[2024-03-13] MEDS: 0.9 % Sodium Chloride 1,000 ML 999 ML IV (19:33)
[2024-03-13 20:00] VITALS: BP 146/86; PULSE 64; RESP 18; TEMP 36.8; O2SAT 98
[2024-03-13 21:15] VITALS: BP 146/86; PULSE 64; RESP 18; TEMP 36.8; O2SAT 98
== END 2024-03-13 21:16 | disposition home or self-care (01) ==
PROVIDERS: Registered Nurse Emergency; Emergency Provider Emergency Medicine; PCP Internal Medicine
DX: H81.13 Benign paroxysmal vertigo, bilateral (principal); R11.2 Nausea with vomiting, unspecified; Z03.818 Encounter for observation for suspected exposure to other biological agents ruled out; Z79.899 Other long term (current) drug therapy
CPT/HCPCS: 0241U; 36415; 80053; 82375; 84484; 85025; 93005; 96360; 99284; 99285

== ENCOUNTER → 2024-03-13 15:32 | Outpatient (BNV) | payer OTHER, SELFPAY | PROVIDERS: Emergency Provider Emergency Medicine; PCP Internal Medicine; Visit Provider Internal Medicine | DX: R94.31 Abnormal electrocardiogram [ECG] [EKG] (principal) | CPT/HCPCS: 93010 ==

== ENCOUNTER 2024-04-18 19:52 | Emergency (ER) | payer OTHER, SELFPAY ==
--- NOTE | ~2024-04-18 | XR_ITS ---
EXAMINATION: XR LUMBOSACRAL SPINE CLINICAL INFORMATION: Midline lumbar pain. No trauma. COMPARISON: Lumbar spine radiographs dated December 25, 2013. TECHNIQUE: Three views of the lumbosacral spine. FINDINGS: Spinal alignment is anatomic in the sagittal projection. The vertebral bodies demonstrate preserved stature. Intervertebral disc space heights are preserved. There is no acute fracture. The sacroiliac joints are intact. XR/XR lumbar spine 2-3V IMPRESSION: No acute osseous lumbar spine abnormality. No significant degenerative disease. Electronically signed by: Sundar Villanueva DO 04/18/2024 10:43 PM EDT
[2024-04-18 20:15] VITALS: BP 146/97; PULSE 88; RESP 16; TEMP 36.4; O2SAT 95; BMI 32.4
--- NOTE | 2024-04-18 20:15 | ED.BACK ---
HPI - Back Pain/Injury General Chief Complaint: Back Pain/Injury Stated Complaint: back pain, no injury Time Seen by Provider: 04/18/24 22:35 Source: patient Mode of arrival: ambulatory Limitations: no limitations History of Present Illness ED Provider: Dr. Mehdi Cunningham HPI Narrative: 43-year-old male with history of diabetes mellitus and hyperlipidemia who presents emergency department for evaluation of 1 week of lower back pain. The patient is not recount any injury. He states the pain started suddenly and is located in the middle of his lower back. The pain does radiate to his left hip but does not radiate down his left leg. He denies numbness, weakness or loss of bowel or bladder control. He patient denied systemic symptoms such as fever, chills, nausea or vomiting. The patient has been using lidocaine patches with no relief his pain. He states he has had similar pain in the past secondary to spinal stenosis, arthritis of his back and disc disease. Related Data Previous Rx's ?Medication ?Instructions ?Recorded colchicine 0.6 mg capsule 0.6 mg PO DAILY #30 caps 07/22/21 dexamethasone 6 mg tablet 6 mg PO DAILY #7 tabs 07/22/21 (Decadron) indomethacin 50 mg capsule 50 mg PO TID PRN pain (scale score 07/22/21 4-6) #60 caps colchicine 0.6 mg tablet 0.6 mg PO DAILY 30 days #30 tabs 07/23/21 nirmatrelvir 300 mg (150 mg See Rx Instructions PO .COMPLEX 03/04/22 x2)-ritonavir 100 mg tablet,dose #30 tabs pack (Paxlovid) colchicine 0.6 mg tablet 0.6 mg PO DAILY #30 tabs 09/18/22 indomethacin 50 mg capsule 50 mg PO TID PRN gout pain #90 09/18/22 caps prednisone 20 mg tablet 60 mg (3 x 20 mg) PO DAILY 5 days 09/18/22 #15 tabs albuterol sulfate 90 mcg/actuation 2 inh inhalation Q4-6H PRN 12/11/22 breath activated powder inhaler shortness of breath or wheezing #1 ea benzonatate 100 mg capsule 100 mg PO BID PRN cough #20 caps 12/11/22 ketorolac 10 mg tablet 10 mg PO TID PRN pain 5 days #15 12/11/22 tabs prednisone 20 mg tablet 60 mg (3 x 20 mg) PO DAILY 5 days 12/11/22 #15 tabs penicillin V potassium 500 mg 500 mg PO BID 10 days #20 tabs 03/22/23 tablet prednisone 20 mg tablet 20 mg PO DAILY 7 days #7 tabs 03/22/23 colchicine 0.6 mg tablet 0.6 mg PO DAILY #30 tabs 01/19/24 indomethacin 50 mg capsule 50 mg PO TID PRN gout pain #20 caps 01/19/24 prednisone 20 mg tablet 40 mg (2 x 20 mg) PO DAILY 5 days 01/19/24 #10 tabs meclizine 25 mg tablet 25 mg PO TID #20 tabs 03/13/24 cyclobenzaprine 10 mg tablet 10 mg PO TID PRN pain, muscle 04/18/24 spasm #15 tabs Allergies Allergy/AdvReac Type Severity Reaction Status Date / Time No Known Allergies Allergy Verified 04/18/24 20:18 Review of Systems Review of Systems: Yes all other systems are reviewed and are negative [facility] Past Medical History [facility] Narrative: Social history: He denies tobacco, alcohol and injection drug use. Social History Social History Alcohol intake: never Advance Directives: No Advance Directives Information Provided: No Physical Exam Vital Signs: Vital Signs: Last Vital Signs Temp 97.6 F 04/18/24 23:04 Pulse 88 04/18/24 23:04 Resp 16 04/18/24 23:04 BP 146/97 H 04/18/24 23:04 Pulse Ox 95 04/18/24 23:04 O2 Del Method Room Air 04/18/24 23:04 BMI result Body Mass Index 32.4 The vital signs revealed an elevated blood pressure of 146/97 otherwise unremarkable Exam: General: Awake, alert in no distress Head: Normocephalic, atraumatic EENT: PERRL, Lids normal, sclera normal, conjunctiva normal, nose normal , ears normal, throat without erythema or exudates Neck: Supple, no adenopathy Lung: breath sounds symmetric, no wheezing, rales or rhonchi Chest: symmetric movement, nontender Heart: regular rate and rhythm, normal S1, S2 no murmurs or rubs Abdomen: soft, non-tender, nondistended, normal bowel sounds Back: no point tenderness palpation over his vertebrae, patient does have tenderness with palpation of the paraspinal muscles on the left lumbar sacral region with spasm of these muscles, he has negative straight leg raises bilaterally, he has no CVA tenderness Extremities: no deformities, moves all extremities symmetrically Neuro: Awake, alert, oriented, normal speech, cranial nerves intact, moves all extremities symmetrically Psych: Pleasant, cooperative Course Course Course Narrative: This is a Rapid Medical Examination (RME) performed by Herrera Estevez PA-C in triage. Full HPI, ROS, assessment and treatment plan per primary provider in the Main ED. 43 yo male here for eval of midline lumbar pain x1 week. pain radiates to left low back. worse w/ movement. hx of renal stones, states this does not feel similar. has been using zeinab patches at home w/o relief. he denies injury/ trauma. denies urinary symptoms. + no palpable midline tenderness. no cvat b/l. ambulating w/ steady gait. Plan: xrs Medical Decision Making Medical Decision Making [facility] Narrative: 43-year-old male with a history of diabetes hyperlipidemia who presents emergency department for evaluation of 1 week of lower back pain with pain radiating to his left hip with no reported injury. He did have similar pain in the past secondary to arthritis/disc disease /spinal stenosis. He denied fever, chills, numbness, weakness, loss of bowel or bladder control. Vital signs were normal. Physical examination did reveal tenderness palpation of his left paraspinal muscles in the lumbar sacral region with spasm of these muscles. Had negative straight leg raises bilaterally a normal neurologic exam. Differential diagnosis: Includes but is not limited to Musculoskeletal strain, sciatica, disc disease, arthritis, spinal stenosis, paraspinal abscess Following evaluation was ordered: x-rays lumbar sacral spine three views, urinalysis Course: Patient's urinalysis was unremarkable and his lumbar sacral spinal x-rays revealed no significant abnormalities. Patient's physical findings are consistent with musculoskeletal sprain and discuss this with him. Patient was advised to take Tylenol and ibuprofen is also prescribe cyclobenzaprine 10 mg 3 times a day as needed for pain and spasm. He was given printed and verbal instructions and discharged home. Admission/Observation Consideration of admission/observation: Escalation of care including admission/observation considered ( Yes) Lab Data [facility] Lab Attestation statement: I reviewed the patient's lab results. my interpretation patient's laboratory evaluation is as follows: Urinalysis was negative. Labs: Lab Results 04/18/24 Range/Units 22:42 Urine Color Yellow Urine Appearance Clear Urine pH 5.5 (5.0-9.0) Ur Specific [place] 1.020 (1.005-1.025) Urine Protein Negative (Neg-Trace) mg/dL Urine Glucose (UA) Negative (Negative) mg/dL Urine Ketones Negative (Negative) mg/dL Urine Blood Negative (Negative) Urine Nitrite Negative (Negative) Ur Leukocyte Esterase Negative (Negative) Independent Interpretation I performed an independent interpretation of an: Plain X-Ray Interpretation: My interpretation patient's three-view lumbar sacral spine x-rays as follows: No acute fracture or significant findings Radiology Impression Discussion of test interpretation with radiology: I have reviewed the radiologist's reading. Radiologist Impression: XR lumbar spine 2-3V IMPRESSION: No acute osseous lumbar spine abnormality. No significant degenerative disease. Dictated By: Sundar Villanueva Jr DO Prescription Management I considered prescription management with: Other ( anti muscle spasm medications -cyclobenzaprine) Chronic Conditions Patient?s care impacted by: Diabetes and Other ( hyperlipidemia) Discharge Plan Discharge Clinical Impression: Acute lumbar myofascial strain Patient Disposition: Home, Self-Care Instructions: Acute Low Back Pain (ED), Cold Compress or Soak (ED) Additional Instructions: Your physical exam findings are consistent with a sprain of the muscles along your lower back on the right. Your x-rays were normal Take ibuprofen 200 mg pills, 2 pills every 6 hours as needed for pain or fever. Take Tylenol (acetaminophen) 500 mg pills, 2 pills every 6 hours as needed for pain or fever. Take Flexeril (cyclobenzaprine) 10 mg pills, 1 pill every 6-8 hours as needed for pain or spasm. ?This medication will make you sleepy. ?Do not drive or work while taking this medication. Apply ice to your lower back for 15 minutes 4 to 6 times a day for the next 2-3 days Follow-up with your doctor in 2 days. Please return to the emergency department if your symptoms get worse or if you develop any symptoms that are concerning to you. Prescriptions: New cyclobenzaprine 10 mg tablet 10 mg PO TID PRN (Reason: pain, muscle spasm) Qty: 15 0RF No Action colchicine 0.6 mg tablet 0.6 mg PO DAILY Qty: 30 3RF prednisone 20 mg tablet 60 mg PO DAILY 5 Days Qty: 15 0RF indomethacin 50 mg capsule 50 mg PO TID PRN (Reason: gout pain ) Qty: 90 0RF Rx Instructions: administer with food or milk dexamethasone [Decadron] 6 mg tablet 6 mg PO DAILY Qty: 7 0RF colchicine 0.6 mg capsule 0.6 mg PO DAILY Qty: 30 0RF indomethacin 50 mg capsule 50 mg PO TID PRN (Reason: pain (scale score 4-6)) Qty: 60 0RF Rx Instructions: administer with food or milk colchicine 0.6 mg tablet 0.6 mg PO DAILY 30 Days Qty: 30 0RF Paxlovid 150 mg x 2- 100 mg tablet See Rx Instructions .ROUTE .COMPLEX Qty: 30 0RF Rx Instructions: take TWO 150 mg tablets of nirmatrelvir with ONE 100 mg tablet of ritonavir twice daily for 5 days prednisone 20 mg tablet 20 mg PO DAILY 7 Days Qty: 7 0RF penicillin V potassium 500 mg tablet 500 mg PO BID 10 Days Qty: 20 0RF albuterol sulfate 90 mcg/actuation aerosol powdr breath activated 2 inh inhalation Q4-6H PRN (Reason: shortness of breath or wheezing) Qty: 1 0RF benzonatate 100 mg capsule 100 mg PO BID PRN (Reason: cough) Qty: 20 0RF prednisone 20 mg tablet 60 mg PO DAILY 5 Days Qty: 15 0RF ketorolac 10 mg tablet 10 mg PO TID PRN (Reason: pain) 5 Days Qty: 15 0RF prednisone 20 mg tablet 40 mg PO DAILY 5 Days Qty: 10 0RF indomethacin 50 mg capsule 50 mg PO TID PRN (Reason: gout pain) Qty: 20 0RF Rx Instructions: administer with food or milk colchicine 0.6 mg tablet 0.6 mg PO DAILY Qty: 30 0RF meclizine 25 mg tablet 25 mg PO TID Qty: 20 0RF Stand Alone Forms: Work/School Release Interventions: ED Discharge Assessment Last Done: 04/18/24 23:04 Discharge Date/Time: 04/18/24 23:04 Print Language: Irish
[2024-04-18 22:51] LABS: Appearance Urine Clear; Color Urine Yellow; Glucose Urine UA Negative (Negative); Leukocyte Esterase Urine Negative (Negative); Nitrite Urine Negative (Negative); PH 5.5 (5.0-9.0); Urine Blood Negative (Negative); Urine Ketones Negative (Negative); Urine Protein Negative (Neg-Trace)
[2024-04-18 23:04] VITALS: BP 146/97; PULSE 88; RESP 16; TEMP 36.4; O2SAT 95
== END 2024-04-18 23:04 | disposition home or self-care (01) ==
PROVIDERS: Physician Assistant Medical; Emergency Provider Emergency Medicine Emergency Medical Services; PCP Internal Medicine
DX: S39.012A Strain of muscle, fascia and tendon of lower back, initial encounter (principal); X58.XXXA Exposure to other specified factors, initial encounter; E11.9 Type 2 diabetes mellitus without complications; E78.5 Hyperlipidemia, unspecified; Y93.9 Activity, unspecified; Y92.9 Unspecified place or not applicable; Y99.9 Unspecified external cause status; Z79.899 Other long term (current) drug therapy
CPT/HCPCS: 72100; 81003; 99283; 99284